=== PATIENT | male | born 1940 | race Caucasian/White ===

== ENCOUNTER → 2018-02-15 07:05 | Outpatient (CLI) | payer MEDICARE, SELFPAY ==
[2018-02-15 10:54] LABS: Hemoglobin 12.8 g/dl (13.0-16.5); Mean Corp Hgb Conc 32.8 g/gl (32-36); Mean Corpuscular Hgb 31.1 pg (27.0-32.0); Mean Corpuscular Volume 94.7 fL (80-94); Mean Platelet Vol. 11.3 fl (6.2-12.0); Platelet Count 294 K/mm3 (150-450); Red Blood Count 4.12 M/mm3 (4.6-6.2); White Blood Count 11.5 K/mm3 (4.4-11.0)
[2018-02-15 10:56] LABS: Scan Indicated on CBC? Y/N NO
[2018-02-15 11:30] LABS: Anion Gap 11 (5-15); BUN 18 mg/dL (7-18); BUN/Creat Ratio 20.6 RATIO (10-20); Calcium,Total 8.5 mg/dL (8.5-10.1); Chloride 107 mmol/L (98-107); Cholesterol 108 mg/dL (200); Creatinine, Serum 0.88 mg/dL (0.70-1.30); EST Glomerular Filtration Rate 90 mL/min (>60); Est Glom Filt Rate - Afr Amer 108 mL/min (>60); Glucose 83 mg/dL (74-106); High Density Lipoprotein 43 mg/dL; Potassium 4.1 mmol/L (3.5-5.1); Sodium Level 143 mmol/L (136-145); Triglycerides 67 mg/dL; Very Low Density Lipoprotein 13 mg/dL (5-40)
== END ==
PROVIDERS: Family Provider Family Medicine; PCP Family Medicine; Visit Provider Family Medicine
DX: I25.10 Atherosclerotic heart disease of native coronary artery without angina pectoris (principal); Z12.5 Encounter for screening for malignant neoplasm of prostate; E78.00 Pure hypercholesterolemia, unspecified
CPT/HCPCS: 36415; 80048; 80061; 84153; 85027

== ENCOUNTER → 2018-08-27 09:59 | Outpatient (CLI) | payer MEDICARE, SELFPAY ==
[2015-12-21 09:55] VITALS: BMI 27.9
[2018-08-27 12:36] LABS: PSA,Total- Diagnostic 6.09 ng/mL (0.0-4.0)
== END ==
PROVIDERS: Family Provider Family Medicine; PCP Family Medicine; Referring Provider Urology; Visit Provider Urology
DX: R97.20 Elevated prostate specific antigen [PSA] (principal)
CPT/HCPCS: 36415; 84153

== ENCOUNTER → 2019-02-22 07:02 | Outpatient (CLI) | payer MEDICARE, SELFPAY ==
[2019-02-22 10:11] LABS: Absolute Lymphocyte Count 2.77 X10^3/ul (0.83-4.51); Absolute Neutrophil Count 5.7 X10^3/uL (2.0-7.7); Basophil# 0.05 X10^3/uL; Basophil% 0.5 % (0-1); Eosinophil# 0.29 X10^3/uL; Hematocrit 39.5 % (40-54); Hemoglobin 13.2 g/dl (13.0-16.5); Lymphocyte # 2.77 X10^3/ul (4.0); Lymphocyte % 28.3 % (19-41); Mean Corp Hgb Conc 33.4 g/gl (32-36); Mean Corpuscular Hgb 31.7 pg (27.0-32.0); Mean Corpuscular Volume 94.7 fL (80-94); Monocyte# 0.91 X10^3/uL; Monocyte% 9.3 % (0-10); Neutrophil # 5.74 X10^3/uL (2.7-7.7); Neutrophil % 58.7 % (47-70); Platelet Count 270 K/mm3 (150-450); RBC Distribution Width CV 13.4 % (11.6-14.6); RBC Distribution Width SD 46.3 fl (35.1-43.9); Red Blood Count 4.17 M/mm3 (4.6-6.2); White Blood Count 9.8 K/mm3 (4.4-11.0)
[2019-02-22 10:23] LABS: POSITIVE COUNT NO; POSITIVE DIFFERENTIAL NO; POSITIVE MORPHOLOGY NO
[2019-02-22 10:31] LABS: Anion Gap 4 (5-15); BUN 18 mg/dL (7-18); Calcium,Total 8.6 mg/dL (8.5-10.1); Chloride 108 mmol/L (98-107); Cholesterol 136 mg/dL (200); Creatinine, Serum 0.95 mg/dL (0.70-1.30); EST Glomerular Filtration Rate 82 mL/min (>60); Est Glom Filt Rate - Afr Amer 99 mL/min (>60); Glucose 93 mg/dL (74-106); High Density Lipoprotein 43 mg/dL; Sodium Level 138 mmol/L (136-145); Triglycerides 113 mg/dL; Very Low Density Lipoprotein 23 mg/dL (5-40)
== END ==
PROVIDERS: Family Provider Family Medicine; PCP Family Medicine; Referring Provider Family Medicine; Visit Provider Family Medicine
DX: E78.00 Pure hypercholesterolemia, unspecified (principal); I25.10 Atherosclerotic heart disease of native coronary artery without angina pectoris
CPT/HCPCS: 36415; 80048; 80061; 85025

== ENCOUNTER → 2019-10-15 | Outpatient (CLI) | payer MEDICARE, SELFPAY ==
[2019-10-15 11:46] LABS: PSA,Total- Diagnostic 6.75 ng/mL (0.0-4.0)
== END | disposition home or self-care (01) ==
LOC: LAB 09:13
PROVIDERS: PCP Family Medicine; Referring Provider Urology; Visit Provider Urology
DX: C61 Malignant neoplasm of prostate (principal)
CPT/HCPCS: 36415; 84153

== ENCOUNTER → 2020-03-27 | Outpatient (CLI) | payer MEDICARE, SELFPAY ==
[2020-03-27 09:59] LABS: Absolute Lymphocyte Count 2.44 X10^3/uL (0.83-4.51); Absolute Neutrophil Count 5.4 X10^3/uL (2.0-7.7); Basophil# 0.07 X10^3/uL; Basophil% 0.8 % (0-1); Eosinophil# 0.33 X10^3/uL; Eosinophils% 3.7 % (0-5); Hematocrit 39.4 % (40-54); Hemoglobin 12.8 g/dL (13.0-16.5); Lymphocyte # 2.44 X10^3/ul (4.0); Lymphocyte % 27.1 % (19-41); Mean Corp Hgb Conc 32.5 g/dL (32-36); Mean Corpuscular Hgb 32.2 pg (27.0-32.0); Monocyte# 0.78 X10^3/uL; Monocyte% 8.7 % (0-10); NRBC Flagged by Analyzer 0 % (0-5); Neutrophil # 5.35 X10^3/uL (2.7-7.7); Neutrophil % 59.5 % (47-70); Platelet Count 273 K/mm3 (150-450); RBC Distribution Width CV 12.8 % (11.6-14.6); Red Blood Count 3.98 M/mm3 (4.6-6.2)
[2020-03-27 10:14] LABS: ALB/GLOB Ratio 1.1 RATIO (0.9-2.4); AST(SGOT) 19 U/L (15-37); Alanine Aminotransfer ALT/SGPT 23 U/L (16-61); Albumin, Serum 3.7 g/dL (3.2-5.0); Alkaline Phosphatase 74 U/L (45-117); Anion Gap 7 (5-15); BUN 20 mg/dL (7-18); BUN/Creat Ratio 20.9 RATIO (10-20); Calcium,Total 8.3 mg/dL (8.5-10.1); Chloride 107 mmol/L (98-107); Cholesterol 126 mg/dL (200); Creatinine, Serum 0.96 mg/dL (0.70-1.30); EST Glomerular Filtration Rate 80 mL/min (>60); Est Glom Filt Rate - Afr Amer 97 mL/min (>60); Globulin 3.4 g/dL (2.2-4.2); Glucose 91 mg/dL (74-106); High Density Lipoprotein 43 mg/dL; Protein, Total 7.1 g/dL (6.4-8.2); Sodium Level 140 mmol/L (136-145); Triglycerides 79 mg/dL; Very Low Density Lipoprotein 16 mg/dL (5-40)
[2020-03-27 10:18] LABS: Vitamin D,25 Hydroxy 56.5 ng/mL
[2020-03-27 16:25] LABS: Vitamin B12 556 pg/mL (211-911)
[2020-03-27 16:26] LABS: Ferritin 132 ng/mL (26-388); Iron 96 ug/dL (65-175); Iron Binding Capacity,Total 342 ug/dL (250-450); PERCENT IRON SATURATION 28.1 % (15.0-55.0)
== END | disposition home or self-care (01) ==
LOC: MTLAB 07:03
PROVIDERS: PCP Family Medicine; Referring Provider Family Medicine; Visit Provider Family Medicine
DX: I25.10 Atherosclerotic heart disease of native coronary artery without angina pectoris (principal); E55.9 Vitamin D deficiency, unspecified; D64.9 Anemia, unspecified; F17.200 Nicotine dependence, unspecified, uncomplicated
CPT/HCPCS: 36415; 80053; 80061; 82306; 82607; 82728; 82746; 83540; 83550; 85025

== ENCOUNTER → 2020-07-09 | Outpatient (CLI) | payer MEDICARE, SELFPAY ==
[2020-07-09 07:08] LABS: Bacteria 0 SEEN /hpf (None Seen); Mucous, Urine 0 SEEN /hpf (<or=2+); Red Blood Cells-Urine 0 SEEN /hpf (0-5); Squamous Epithelial Cells - UA 0 SEEN /hpf (0-5); White Blood Cells 0 SEEN /hpf (0-5)
[2020-07-09 09:55] LABS: Color, Urine Yellow (Yellow); Glucose, Dipstick Normal (Normal); Ketone-Dipstick Negative (Negative); Leukocyte Esterase-Dipstick Negative /ul (Negative); Nitrite-Dipstick Negative (Negative); Occult Blood-Urine Negative /ul (Negative); Protein-Dipstick Negative (Negative); Urine Bilirubin Dipstick Negative (Negative); Urine Clarity Clear (Clear); Urine Urobilinogen Normal (Normal)
[2020-07-09 10:27] LABS: Vitamin B12 625 pg/mL (211-911)
[2020-07-09 10:58] LABS: Ferritin 125 ng/mL (26-388); Iron 82 ug/dL (65-175); Iron Binding Capacity,Total 343 ug/dL (250-450); PERCENT IRON SATURATION 23.9 % (15.0-55.0)
== END | disposition home or self-care (01) ==
LOC: MTLAB 07:03
PROVIDERS: PCP Family Medicine; Referring Provider Family Medicine; Visit Provider Family Medicine
DX: D64.9 Anemia, unspecified (principal)
CPT/HCPCS: 36415; 81001; 82607; 82728; 82746; 83540; 83550

== ENCOUNTER → 2020-07-14 08:17 | Outpatient (CLI) | payer MEDICARE, SELFPAY ==
[2020-07-14 10:04] LABS: Basophil# 0.06 X10^3/uL; Basophil% 0.8 % (0-1); Eosinophil# 0.27 X10^3/uL; Eosinophils% 3.5 % (0-5); Hematocrit 38.8 % (40-54); Hemoglobin 12.7 g/dL (13.0-16.5); Lymphocyte % 22.1 % (19-41); Mean Corp Hgb Conc 32.7 g/dL (32-36); Mean Corpuscular Hgb 32.1 pg (27.0-32.0); Monocyte# 0.67 X10^3/uL; Monocyte% 8.7 % (0-10); NRBC Flagged by Analyzer 0 % (0-5); Neutrophil # 4.97 X10^3/uL (2.7-7.7); Neutrophil % 64.5 % (47-70); Platelet Count 274 K/mm3 (150-450); RBC Distribution Width CV 12.6 % (11.6-14.6); RBC Distribution Width SD 45.3 fl (35.1-43.9); Red Blood Count 3.96 M/mm3 (4.6-6.2); White Blood Count 7.7 K/mm3 (4.4-11.0)
[2020-07-14 10:20] LABS: Vitamin B12 555 pg/mL (211-911); Vitamin D,25 Hydroxy 48.4 ng/mL
[2020-07-14 10:24] LABS: ALB/GLOB Ratio 1.1 RATIO (0.9-2.4); AST(SGOT) 15 U/L (15-37); Alanine Aminotransfer ALT/SGPT 22 U/L (16-61); Albumin, Serum 3.7 g/dL (3.2-5.0); Alkaline Phosphatase 79 U/L (45-117); Anion Gap 6 (5-15); BUN 17 mg/dL (7-18); Calcium,Total 8.8 mg/dL (8.5-10.1); Chloride 110 mmol/L (98-107); Cholesterol 110 mg/dL (200); Creatinine, Serum 0.94 mg/dL (0.70-1.30); EST Glomerular Filtration Rate 81 mL/min (>60); Est Glom Filt Rate - Afr Amer 99 mL/min (>60); Globulin 3.3 g/dL (2.2-4.2); Glucose 99 mg/dL (74-106); High Density Lipoprotein 47 mg/dL; PSA,Total- Diagnostic 5.76 ng/mL (0.0-4.0); Potassium 4.2 mmol/L (3.5-5.1); Sodium Level 142 mmol/L (136-145); Triglycerides 49 mg/dL; Very Low Density Lipoprotein 10 mg/dL (5-40)
== END ==
PROVIDERS: PCP Family Medicine; Referring Provider Family Medicine; Visit Provider Family Medicine
DX: I25.10 Atherosclerotic heart disease of native coronary artery without angina pectoris (principal); D64.9 Anemia, unspecified; E78.00 Pure hypercholesterolemia, unspecified; C61 Malignant neoplasm of prostate; E55.9 Vitamin D deficiency, unspecified
CPT/HCPCS: 36415; 80053; 80061; 82306; 82607; 84153; 85025

== ENCOUNTER → 2020-10-05 10:37 | Outpatient (CLI) | payer MEDICARE, SELFPAY ==
[2015-12-21 09:55] VITALS: BMI 27.9
[2020-10-05 13:42] LABS: Ferritin 129 ng/mL (26-388); Iron 130 ug/dL (65-175); Iron Binding Capacity,Total 353 ug/dL (250-450)
== END ==
PROVIDERS: PCP Family Medicine; Referring Provider Family Medicine; Visit Provider Family Medicine
DX: D64.9 Anemia, unspecified (principal)
CPT/HCPCS: 36415; 82728; 82746; 83540; 83550

== ENCOUNTER → 2020-10-08 10:45 | Outpatient (CLI) | payer MEDICARE, SELFPAY ==
[2015-12-21 09:55] VITALS: BMI 27.9
[2020-10-08 12:46] LABS: PSA,Total- Diagnostic 7.29 ng/mL (0.0-4.0)
== END ==
PROVIDERS: PCP Family Medicine; Referring Provider Urology; Visit Provider Urology
DX: R97.20 Elevated prostate specific antigen [PSA] (principal)
CPT/HCPCS: 36415; 84153

== ENCOUNTER 2020-10-15 16:12 | Outpatient (RCR) | payer MEDICARE, SELFPAY ==
[2015-12-21 09:55] VITALS: BMI 27.9
== END 2020-10-15 23:59 ==
LOC: IMMUN 16:12
PROVIDERS: PCP Family Medicine; Visit Provider Family Medicine
DX: Z23 Encounter for immunization (principal)
CPT/HCPCS: 0011A; 0012A; 91301

== ENCOUNTER → 2021-04-02 07:33 | Outpatient (CLI) | payer MEDICARE, SELFPAY ==
[2015-12-21 09:55] VITALS: BMI 27.9
[2021-04-02 07:40] LABS: Bacteria 0 SEEN /hpf (None Seen); Mucous, Urine 0 SEEN /hpf (<or=2+); Red Blood Cells-Urine 0 SEEN /hpf (0-5); Squamous Epithelial Cells - UA 0 SEEN /hpf (0-5); White Blood Cells 0 SEEN /hpf (0-5)
[2021-04-02 10:22] LABS: Absolute Lymphocyte Count 2.71 X10^3/uL (0.83-4.51); Absolute Neutrophil Count 6.4 X10^3/uL (2.0-7.7); Basophil# 0.05 X10^3/uL; Basophil% 0.5 % (0-1); Eosinophil# 0.31 X10^3/uL; Hematocrit 39.5 % (40-54); Hemoglobin 13.2 g/dL (13.0-16.5); Lymphocyte # 2.71 X10^3/ul (0.83-4.51); Lymphocyte % 26.3 % (19-41); Mean Corp Hgb Conc 33.4 g/dL (32-36); Mean Corpuscular Hgb 31.5 pg (27.0-32.0); Mean Corpuscular Volume 94.3 fL (80-94); Monocyte# 0.81 X10^3/uL; Monocyte% 7.9 % (0-10); NRBC Flagged by Analyzer 0 % (0-5); Neutrophil # 6.37 X10^3/uL (2.7-7.7); Neutrophil % 61.9 % (47-70); Platelet Count 279 K/mm3 (150-450); RBC Distribution Width CV 12.6 % (11.6-14.6); RBC Distribution Width SD 43.8 fl (35.1-43.9); Red Blood Count 4.19 M/mm3 (4.6-6.2); White Blood Count 10.3 K/mm3 (4.4-11.0)
[2021-04-02 10:22] LABS: Color, Urine Yellow (Yellow); Glucose, Dipstick Normal (Normal); Ketone-Dipstick Negative (Negative); Leukocyte Esterase-Dipstick Negative /ul (Negative); Nitrite-Dipstick Negative (Negative); Occult Blood-Urine Negative /ul (Negative); Protein-Dipstick Negative (Negative); Specific Gravity, Urine 1.015 (1.002-1.030); Urine Bilirubin Dipstick Negative (Negative); Urine Clarity Clear (Clear); Urine Urobilinogen Normal (Normal)
[2021-04-02 10:36] LABS: ALB/GLOB Ratio 1.1 RATIO (0.9-2.4); AST(SGOT) 16 U/L (15-37); Alanine Aminotransfer ALT/SGPT 21 U/L (16-61); Albumin, Serum 3.9 g/dL (3.2-5.0); Alkaline Phosphatase 78 U/L (45-117); Anion Gap 5 (5-15); BUN 18 mg/dL (7-18); BUN/Creat Ratio 19.1 RATIO (10-20); Calcium,Total 8.5 mg/dL (8.5-10.1); Chloride 107 mmol/L (98-107); Cholesterol 130 mg/dL (200); Creatinine, Serum 0.94 mg/dL (0.70-1.30); EST Glomerular Filtration Rate 82 mL/min (>60); Est Glom Filt Rate - Afr Amer 99 mL/min (>60); Globulin 3.4 g/dL (2.2-4.2); Glucose 92 mg/dL (74-106); High Density Lipoprotein 44 mg/dL; Protein, Total 7.3 g/dL (6.4-8.2); Sodium Level 139 mmol/L (136-145); Triglycerides 97 mg/dL; Very Low Density Lipoprotein 19 mg/dL (5-40); Vitamin D,25 Hydroxy 52.5 ng/mL
== END ==
PROVIDERS: PCP Family Medicine; Referring Provider Family Medicine; Visit Provider Family Medicine
DX: E55.9 Vitamin D deficiency, unspecified (principal); E78.00 Pure hypercholesterolemia, unspecified; F17.200 Nicotine dependence, unspecified, uncomplicated
CPT/HCPCS: 36415; 80053; 80061; 81001; 82306; 85025

== ENCOUNTER 2021-09-27 10:16 | Outpatient (CLI) | payer MEDICARE, SELFPAY ==
[2021-09-27 12:23] LABS: PSA,Total- Diagnostic 6.86 ng/mL (0.0-4.0)
== END 2021-09-27 23:59 | disposition short-term general hospital (02) ==
LOC: MTLAB 10:17
PROVIDERS: PCP Family Medicine; Referring Provider Urology; Visit Provider Urology
DX: R97.20 Elevated prostate specific antigen [PSA] (principal)
CPT/HCPCS: 36415; 84153

== ENCOUNTER → 2022-04-11 | Outpatient (CLI) | payer MEDICARE, SELFPAY ==
[2022-04-11 07:58] LABS: Bacteria 0 SEEN /hpf (None Seen); Mucous, Urine 0 SEEN /hpf (<or=2+); Red Blood Cells-Urine 0 SEEN /hpf (0-5); Squamous Epithelial Cells - UA 0 SEEN /hpf (0-5); White Blood Cells 0 SEEN /hpf (0-5)
[2022-04-11 10:24] LABS: Color, Urine Yellow (Yellow); Glucose, Dipstick Normal (Normal); Ketone-Dipstick Negative (Negative); Leukocyte Esterase-Dipstick Negative /ul (Negative); Nitrite-Dipstick Negative (Negative); Occult Blood-Urine Negative /ul (Negative); Protein-Dipstick Negative (Negative); Urine Bilirubin Dipstick Negative (Negative); Urine Clarity Clear (Clear); Urine Urobilinogen Normal (Normal)
[2022-04-11 10:41] LABS: ALB/GLOB Ratio 1.1 RATIO (0.9-2.4); AST(SGOT) 15 U/L (15-37); Alanine Aminotransfer ALT/SGPT 19 U/L (16-61); Albumin, Serum 3.7 g/dL (3.2-5.0); Alkaline Phosphatase 70 U/L (45-117); Anion Gap 9 (5-15); BUN 16 mg/dL (7-18); BUN/Creat Ratio 18.3 RATIO (10-20); Calcium,Total 8.9 mg/dL (8.5-10.1); Chloride 106 mmol/L (98-107); Cholesterol 128 mg/dL (200); Creatinine, Serum 0.88 mg/dL (0.70-1.30); EST Glomerular Filtration Rate 89 mL/min (>60); Est Glom Filt Rate - Afr Amer 107 mL/min (>60); Globulin 3.4 g/dL (2.2-4.2); Glucose 95 mg/dL (74-106); High Density Lipoprotein 45 mg/dL; Protein, Total 7.1 g/dL (6.4-8.2); Sodium Level 140 mmol/L (136-145); Triglycerides 95 mg/dL; Very Low Density Lipoprotein 19 mg/dL (5-40)
[2022-04-11 12:22] LABS: Absolute Lymphocyte Count 2.71 X10^3/uL (0.83-4.51); Absolute Neutrophil Count 4.8 X10^3/uL (2.0-7.7); Basophil# 0.06 X10^3/uL; Basophil% 0.7 % (0-1); Eosinophil# 0.28 X10^3/uL; Eosinophils% 3.3 % (0-5); Hematocrit 39.3 % (40-54); Hemoglobin 13.1 g/dL (13.0-16.5); Lymphocyte # 2.71 X10^3/ul (0.83-4.51); Lymphocyte % 31.5 % (19-41); Mean Corp Hgb Conc 33.3 g/dL (32-36); Mean Corpuscular Hgb 32.3 pg (27.0-32.0); Mean Corpuscular Volume 96.8 fL (80-94); Monocyte# 0.73 X10^3/uL; Monocyte% 8.5 % (0-10); NRBC Flagged by Analyzer 0 % (0-5); Neutrophil # 4.79 X10^3/uL (2.7-7.7); Neutrophil % 55.8 % (47-70); Platelet Count 247 K/mm3 (150-450); RBC Distribution Width CV 12.6 % (11.6-14.6); RBC Distribution Width SD 45.5 fl (35.1-43.9); Red Blood Count 4.06 M/mm3 (4.6-6.2); White Blood Count 8.6 K/mm3 (4.4-11.0)
== END | disposition home or self-care (01) ==
LOC: MTLAB 07:30
PROVIDERS: PCP Family Medicine; Referring Provider Family Medicine; Visit Provider Family Medicine
DX: E78.00 Pure hypercholesterolemia, unspecified (principal); F17.200 Nicotine dependence, unspecified, uncomplicated; E55.9 Vitamin D deficiency, unspecified
CPT/HCPCS: 36415; 80053; 80061; 81001; 82306; 85025

== ENCOUNTER → 2022-09-21 | Outpatient (CLI) | payer MEDICARE, SELFPAY | END | disposition home or self-care (01) | PROVIDERS: PCP Family Medicine; Visit Provider Internal Medicine Cardiovascular Disease | DX: J32.9 Chronic sinusitis, unspecified (principal) | CPT/HCPCS: 87070; 87205 ==

== ENCOUNTER → 2022-10-03 | Outpatient (CLI) | payer MEDICARE, SELFPAY ==
[2022-10-03 12:41] LABS: PSA,Total- Diagnostic 8.78 ng/mL (0.0-4.0)
== END | disposition home or self-care (01) ==
LOC: MTLAB 10:06
PROVIDERS: PCP Family Medicine; Referring Provider Urology; Visit Provider Urology
DX: C61 Malignant neoplasm of prostate (principal)
CPT/HCPCS: 36415; 84153

== ENCOUNTER → 2022-10-13 | Outpatient (CLI) | payer MEDICARE, SELFPAY ==
[2022-10-13 08:50] LABS: Bacteria 0 SEEN /hpf (None Seen); Mucous, Urine 0 SEEN /hpf (<or=2+); Red Blood Cells-Urine 0 SEEN /hpf (0-5); White Blood Cells 0 SEEN /hpf (0-5)
[2022-10-13 10:06] LABS: Absolute Lymphocyte Count 2.82 X10^3/uL (0.83-4.51); Basophil# 0.06 X10^3/uL; Basophil% 0.8 % (0-1); Eosinophil# 0.32 X10^3/uL; Eosinophils% 4.1 % (0-5); Hematocrit 37.3 % (40-54); Hemoglobin 12.2 g/dL (13.0-16.5); Lymphocyte # 2.82 X10^3/ul (0.83-4.51); Mean Corp Hgb Conc 32.7 g/dL (32-36); Mean Corpuscular Hgb 31.5 pg (27.0-32.0); Mean Corpuscular Volume 96.4 fL (80-94); Mean Platelet Vol. 10.7 fl (6.2-12.0); Monocyte# 0.63 X10^3/uL; NRBC Flagged by Analyzer 0 % (0-5); Neutrophil # 3.97 X10^3/uL (2.7-7.7); Neutrophil % 50.7 % (47-70); Platelet Count 301 K/mm3 (150-450); RBC Distribution Width CV 12.5 % (11.6-14.6); RBC Distribution Width SD 44.1 fl (35.1-43.9); Red Blood Count 3.87 M/mm3 (4.6-6.2); White Blood Count 7.8 K/mm3 (4.4-11.0)
[2022-10-13 10:18] LABS: Vitamin D,25 Hydroxy 60.4 ng/mL
[2022-10-13 10:19] LABS: AST(SGOT) 15 U/L (15-37); Alanine Aminotransfer ALT/SGPT 26 U/L (16-61); Albumin, Serum 3.5 g/dL (3.2-5.0); Alkaline Phosphatase 82 U/L (45-117); Anion Gap 10 (5-15); BUN 21 mg/dL (7-18); BUN/Creat Ratio 23.4 RATIO (10-20); Calcium,Total 8.4 mg/dL (8.5-10.1); Chloride 106 mmol/L (98-107); Cholesterol 97 mg/dL (200); EST Glomerular Filtration Rate 86 mL/min (>60); Est Glom Filt Rate - Afr Amer 104 mL/min (>60); Globulin 3.5 g/dL (2.2-4.2); Glucose 92 mg/dL (74-106); High Density Lipoprotein 35 mg/dL; Potassium 4.1 mmol/L (3.5-5.1); Sodium Level 142 mmol/L (136-145); Triglycerides 79 mg/dL; Very Low Density Lipoprotein 16 mg/dL (5-40)
[2022-10-13 10:20] LABS: Color, Urine Yellow (Yellow); Urine Clarity Clear (Clear)
[2022-10-13 10:21] LABS: Glucose, Dipstick Normal (Normal); Ketone-Dipstick Negative (Negative); Urine Bilirubin Dipstick Negative (Negative)
[2022-10-13 10:22] LABS: Protein-Dipstick 30 mg/dl (Negative); Urine Urobilinogen Normal (Normal)
[2022-10-13 10:23] LABS: Leukocyte Esterase-Dipstick Negative /ul (Negative); Nitrite-Dipstick Negative (Negative); Occult Blood-Urine Negative /ul (Negative)
[2022-10-13 10:30] LABS: Squamous Epithelial Cells - UA 0-5 SEEN /hpf (0-5)
[2022-10-14 10:35] LABS: Ferritin 138 ng/mL (26-388); Iron 93 ug/dL (65-175); Iron Binding Capacity,Total 318 ug/dL (250-450); PERCENT IRON SATURATION 29.2 % (15.0-55.0)
[2022-10-14 10:38] LABS: Vitamin B12 662 pg/mL (211-911)
== END | disposition home or self-care (01) ==
PROVIDERS: PCP Family Medicine; Referring Provider Family Medicine; Visit Provider Family Medicine
DX: E55.9 Vitamin D deficiency, unspecified (principal); F17.200 Nicotine dependence, unspecified, uncomplicated; I25.10 Atherosclerotic heart disease of native coronary artery without angina pectoris; D64.9 Anemia, unspecified
CPT/HCPCS: 36415; 80053; 80061; 81001; 82306; 82607; 82728; 83540; 83550; 85025

== ENCOUNTER → 2023-04-07 | Outpatient (CLI) | payer MEDICARE, SELFPAY ==
[2023-04-07 10:52] LABS: Absolute Lymphocyte Count 2.73 X10^3/uL (0.83-4.51); Absolute Neutrophil Count 4.7 X10^3/uL (2.0-7.7); Basophil# 0.08 X10^3/uL; Basophil% 0.9 % (0-1); Eosinophil# 0.33 X10^3/uL; Eosinophils% 3.8 % (0-5); Hematocrit 37.7 % (40-54); Hemoglobin 12.6 g/dL (13.0-16.5); Lymphocyte # 2.73 X10^3/ul (0.83-4.51); Lymphocyte % 31.7 % (19-41); Mean Corp Hgb Conc 33.4 g/dL (32-36); Mean Corpuscular Hgb 31.8 pg (27.0-32.0); Mean Corpuscular Volume 95.2 fL (80-94); Mean Platelet Vol. 10.9 fl (6.2-12.0); Monocyte# 0.73 X10^3/uL; Monocyte% 8.5 % (0-10); NRBC Flagged by Analyzer 0 % (0-5); Neutrophil # 4.73 X10^3/uL (2.7-7.7); Neutrophil % 54.9 % (47-70); Platelet Count 251 K/mm3 (150-450); RBC Distribution Width CV 12.7 % (11.6-14.6); RBC Distribution Width SD 44.6 fl (35.1-43.9); Red Blood Count 3.96 M/mm3 (4.6-6.2); White Blood Count 8.6 K/mm3 (4.4-11.0)
[2023-04-07 10:53] LABS: Color, Urine Yellow (Yellow); Glucose, Dipstick Normal (Normal); Ketone-Dipstick Negative (Negative); Leukocyte Esterase-Dipstick Negative /ul (Negative); Nitrite-Dipstick Negative (Negative); Occult Blood-Urine Negative /ul (Negative); Protein-Dipstick Negative (Negative); Specific Gravity, Urine 1.015 (1.002-1.030); Urine Bilirubin Dipstick Negative (Negative); Urine Clarity Clear (Clear); Urine Urobilinogen Normal (Normal); Urine pH 6.5 (5.0 - 8.0)
[2023-04-07 11:34] LABS: ALB/GLOB Ratio 1.1 RATIO (0.9-2.4); AST(SGOT) 17 U/L (15-37); Alanine Aminotransfer ALT/SGPT 19 U/L (16-61); Albumin, Serum 3.6 g/dL (3.2-5.0); Alkaline Phosphatase 77 U/L (45-117); Anion Gap 6 (5-15); BUN 18 mg/dL (7-18); BUN/Creat Ratio 19.3 RATIO (10-20); Calcium,Total 8.4 mg/dL (8.5-10.1); Chloride 108 mmol/L (98-107); Cholesterol 128 mg/dL (200); Creatinine, Serum 0.93 mg/dL (0.70-1.30); EST Glomerular Filtration Rate 82 mL/min (>60); Est Glom Filt Rate - Afr Amer 100 mL/min (>60); Globulin 3.4 g/dL (2.2-4.2); Glucose 98 mg/dL (74-106); High Density Lipoprotein 44 mg/dL; Potassium 4.1 mmol/L (3.5-5.1); Sodium Level 140 mmol/L (136-145); Triglycerides 103 mg/dL; Very Low Density Lipoprotein 21 mg/dL (5-40)
== END | disposition home or self-care (01) ==
LOC: MTLAB 07:10
PROVIDERS: PCP Family Medicine; Referring Provider Family Medicine; Visit Provider Family Medicine
DX: E55.9 Vitamin D deficiency, unspecified (principal); I25.10 Atherosclerotic heart disease of native coronary artery without angina pectoris
CPT/HCPCS: 36415; 80053; 80061; 81002; 82306; 85025

== ENCOUNTER → 2023-10-12 | Outpatient (CLI) | payer MEDICARE, SELFPAY ==
[2023-10-13 12:09] LABS: PSA, Free 1.85 ng/mL; PSA, Free % 21.3 % (.)
== END | disposition home or self-care (01) ==
LOC: LAB 08:54
PROVIDERS: PCP Family Medicine; Referring Provider Nurse Practitioner; Visit Provider Nurse Practitioner
DX: C61 Malignant neoplasm of prostate (principal)
CPT/HCPCS: 36415; 84153; 84154

== ENCOUNTER → 2024-05-13 | Outpatient (CLI) | payer MEDICARE, SELFPAY ==
[2024-05-13 12:16] LABS: Absolute Lymphocyte Count 1.78 X10^3/uL (0.83-4.51); Absolute Neutrophil Count 4.9 X10^3/uL (2.0-7.7); Basophil# 0.06 X10^3/uL; Basophil% 0.8 % (0-1); Eosinophil# 0.18 X10^3/uL; Eosinophils% 2.4 % (0-5); Hematocrit 36.4 % (40-54); Hemoglobin 12.4 g/dL (13.0-16.5); Lymphocyte # 1.78 X10^3/ul (0.83-4.51); Lymphocyte % 23.5 % (19-41); Mean Corp Hgb Conc 34.1 g/dL (32-36); Mean Corpuscular Hgb 32.5 pg (27.0-32.0); Mean Corpuscular Volume 95.3 fL (80-94); Mean Platelet Vol. 10.6 fl (6.2-12.0); Monocyte% 7.9 % (0-10); NRBC Flagged by Analyzer 0 % (0-5); Neutrophil # 4.94 X10^3/uL (2.7-7.7); Neutrophil % 65.1 % (47-70); Platelet Count 241 K/mm3 (150-450); RBC Distribution Width CV 13.1 % (11.6-14.6); Red Blood Count 3.82 M/mm3 (4.6-6.2); White Blood Count 7.6 K/mm3 (4.4-11.0)
[2024-05-13 12:35] LABS: Vitamin D,25 Hydroxy 58.7 ng/mL
[2024-05-13 12:38] LABS: ALB/GLOB Ratio 1.1 RATIO (0.9-2.4); AST(SGOT) 17 U/L (15-37); Alanine Aminotransfer ALT/SGPT 18 U/L (16-61); Albumin, Serum 3.6 g/dL (3.2-5.0); Alkaline Phosphatase 76 U/L (45-117); Anion Gap 8 (5-15); BUN 18 mg/dL (7-18); BUN/Creat Ratio 19.3 RATIO (10-20); Calcium,Total 9.1 mg/dL (8.5-10.1); Chloride 108 mmol/L (98-107); Cholesterol 134 mg/dL (200); Creatinine, Serum 0.93 mg/dL (0.70-1.30); EST Glomerular Filtration Rate 82 mL/min (>60); Est Glom Filt Rate - Afr Amer 99 mL/min (>60); Globulin 3.3 g/dL (2.2-4.2); Glucose 89 mg/dL (74-106); High Density Lipoprotein 46 mg/dL; Potassium 3.8 mmol/L (3.5-5.1); Protein, Total 6.9 g/dL (6.4-8.2); Sodium Level 140 mmol/L (136-145); Triglycerides 146 mg/dL; Very Low Density Lipoprotein 29 mg/dL (5-40)
== END | disposition home or self-care (01) ==
LOC: MTLAB 10:51
PROVIDERS: PCP Family Medicine; Referring Provider Family Medicine; Visit Provider Family Medicine
DX: I25.10 Atherosclerotic heart disease of native coronary artery without angina pectoris (principal); E55.9 Vitamin D deficiency, unspecified
CPT/HCPCS: 36415; 80053; 80061; 82306; 85025

== ENCOUNTER → 2024-05-23 | Outpatient (CLI) | payer MEDICARE, SELFPAY ==
[2024-05-23 12:35] LABS: Vitamin B12 730 pg/mL (211-911)
[2024-05-23 12:44] LABS: Ferritin 132 ng/mL (26-388); Iron 108 ug/dL (65-175); Iron Binding Capacity,Total 379 ug/dL (250-450); PERCENT IRON SATURATION 28.5 % (15.0-55.0)
== END | disposition home or self-care (01) ==
LOC: MTLAB 10:29
PROVIDERS: PCP Family Medicine; Referring Provider Family Medicine; Visit Provider Family Medicine
DX: D64.9 Anemia, unspecified (principal)
CPT/HCPCS: 36415; 82607; 82728; 83540; 83550

== ENCOUNTER → 2024-11-20 | Outpatient (CLI) | payer MEDICARE, SELFPAY ==
--- NOTE | 2024-11-20 15:51 | RAD_ITS ---
PROCEDURE: KNEE 3 VIEWS REASON FOR EXAM: Pain TECHNIQUE: 3 view(s) of the right knee COMPARISON: None. FINDINGS: No fracture. No suspicious bone lesion. Moderate tricompartmental degenerative changes No effusion. Soft tissues are unremarkable. RAD/Knee 3 Views IMPRESSION: Moderate degenerative changes with no acute osseous abnormality Reading Location: [facility]
--- NOTE | 2024-11-20 15:51 | RAD_ITS ---
PROCEDURE: HIP, UNI W/ PELVIS 2-3 VIEWS REASON FOR EXAM: Pain TECHNIQUE: Two views of the right hip with pelvis COMPARISON: None. FINDINGS: No fracture. No suspicious bone lesion. Normal alignment. Soft tissues are unremarkable. RAD/HIP, UNI W/ Pelvis 2-3 Views IMPRESSION: No acute fracture or dislocation. Reading Location: [facility]
== END | disposition home or self-care (01) ==
LOC: MTRAD 15:51
PROVIDERS: PCP Family Medicine; Referring Provider Family Medicine; Visit Provider Family Medicine
DX: M25.551 Pain in right hip (principal)
CPT/HCPCS: 73502; 73562

== ENCOUNTER → 2024-12-10 | Outpatient (CLI) | payer MEDICARE, SELFPAY ==
[2024-12-10 12:06] LABS: ALB/GLOB Ratio 1.5 RATIO (0.9-2.4); AST(SGOT) 18 U/L (<=37); Alanine Aminotransfer ALT/SGPT 14 U/L (<=46); Albumin, Serum 4.4 g/dL (3.4-4.8); Alkaline Phosphatase 81 U/L (40-129); Anion Gap 14 (5-15); BUN 20 mg/dL (4-19); BUN/Creat Ratio 20.8 RATIO (10-20); Calcium,Total 7.6 mg/dL (7.6-11.0); Carbon Dioxide 22.2 mmol/L (21.0-32.0); Chloride 104 mmol/L (98-108); Cholesterol 115 mg/dL (<=200); Creatinine, Serum 0.96 mg/dL (0.70-1.20); EST Glomerular Filtration Rate 78 (>60); Globulin 2.9 g/dL (2.2-4.2); Glucose 98 mg/dL (70-99); High Density Lipoprotein 51 mg/dL; Low Density Lipoprotein Calc. 49 mg/dL; PSA,Total - Annual Screen 5.46 ng/mL (0.02-4.00); Potassium 4.3 mmol/L (3.3-5.1); Protein, Total 7.3 g/dL (5.9-8.4); Sodium Level 140 mmol/L (133-145); Total Bilirubin 0.34 mg/dL (0.00-1.30); Triglycerides 72 mg/dL; Very Low Density Lipoprotein 14 mg/dL (5-40); cholesterol:hdl ratio screen 2.24
== END | disposition home or self-care (01) ==
LOC: MTLAB 07:03
PROVIDERS: PCP Family Medicine; Referring Provider Family Medicine; Visit Provider Family Medicine
DX: Z00.00 Encounter for general adult medical examination without abnormal findings (principal); Z12.5 Encounter for screening for malignant neoplasm of prostate; E78.5 Hyperlipidemia, unspecified
CPT/HCPCS: 36415; 80053; 80061; 84153; G0103

== ENCOUNTER → 2025-03-20 | Outpatient (CLI) | payer MEDICARE, SELFPAY ==
[2025-03-20 16:24] LABS: PSA,Total- Diagnostic 7.36 ng/mL (0.00-4.00)
== END | disposition home or self-care (01) ==
LOC: MTLAB 13:34
PROVIDERS: PCP Family Medicine; Referring Provider Urology; Visit Provider Urology
DX: R97.20 Elevated prostate specific antigen [PSA] (principal)
CPT/HCPCS: 36415; 84153

== ENCOUNTER → 2025-05-27 | Outpatient (CLI) | payer MEDICARE, SELFPAY ==
[2025-05-27 15:26] LABS: Hematocrit 35.5 % (40-54); Hemoglobin 11.8 g/dL (13.0-16.5); Immature Granulocytes Count 0.030 X10^3/uL (0.0-0.0); Mean Corp Hgb Conc 33.2 g/dL (32-36); Mean Corpuscular Volume 95.9 fL (80-94); Mean Platelet Vol. 10.9 fl (6.2-12.0); NRBC Flagged by Analyzer 0 % (0-5); Platelet Count 290 K/mm3 (150-450); RBC Distribution Width CV 12.9 % (11.6-14.6); RBC Distribution Width SD 45.8 fl (35.1-43.9); Red Blood Count 3.70 M/mm3 (4.6-6.2); White Blood Count 7.8 K/mm3 (4.4-11.0)
[2025-05-27 18:54] LABS: AST(SGOT) 19 U/L (<=37); Alanine Aminotransfer ALT/SGPT 11 U/L (<=46); Albumin, Serum 4.1 g/dL (3.4-4.8); Alkaline Phosphatase 78 U/L (40-129); Anion Gap 15 (5-15); BUN 16 mg/dL (4-19); BUN/Creat Ratio 17.6 RATIO (10-20); Calcium,Total 9.1 mg/dL (7.6-11.0); Carbon Dioxide 21.2 mmol/L (21.0-32.0); Chloride 103 mmol/L (98-108); Cholesterol 111 mg/dL (<=200); Globulin 2.8 g/dL (2.2-4.2); Glucose 78 mg/dL (70-99); Low Density Lipoprotein Calc. 47 mg/dL; Potassium 3.9 mmol/L (3.3-5.1); Triglycerides 87 mg/dL; Very Low Density Lipoprotein 17 mg/dL (5-40); Vitamin D,25 Hydroxy 51.6 ng/mL (30-100); cholesterol:hdl ratio screen 2.39
--- OUTSIDE RECORDS SUMMARY | 2025-05-27 19:59 | XMS RPT_ITS | CCD ---
Author Organization [facility] CliniSyin Care Team Providers Care Concrete Inspector Name Role Phone José Miguel BORDEN, Dr. Rian Jefferson Primary Care Provider José Miguel BORDEN, Dr. Rian Jefferson Attending Provider [phone] José Miguel BORDEN, Dr. Rian Jefferson Referring Provider Jaison BORDEN, Dr. Herman Attending Provider Jaison BORDEN, Dr. Herman Referring Provider Unavailable Primary Care Provider UnavailBENNIE Moreno Attending Unavailable RIAN QUILES Referring Unavailable BENNIE MAGALLON Attending Unavailable RIAN QUILES Referring Unavailable José Miguel BORDEN, Dr. Rian Jefferson Primary Care Provider Suleiman BORDEN, Dr. Marco Ocampo Attending Provider [phone] Suleiman BORDEN, Dr. Marco Ocampo Referring Provider [phone] Marco Bearden Attending Unavailable Marco Bearden Referring Unavailable Rian Quiles Primary Care Unavailable Rian Quiles Attending Unavailable Rian Quiles Referring Unavailable Rian Quiles Primary Care Unavailable Rian Quiles Attending Unavailable Rian Quiles Referring Unavailable Rian Quiles Primary Care Unavailable Rian Quiles Attending Unavailable Rian Quiles Referring Unavailable Rian Quiles Primary Care Unavailable Virgil Blackwood Attending Unavailable Virgil Blackwood Referring Unavailable Rian Quiles Primary Care Unavailable Medications Current Medications Medication Drug Class(es) Dates Sig (Normalized) Sig (Original) ascorbic acid 500 mg extended release oral capsule (2 sources) Vitamin C Start: 11-28-2005 VITAMIN C 500 MG CAP Take one(1) tablet daily. 0 11/28/2005 Active aspirin 81 mg oral tablet (2 sources) Platelet Aggregation Inhibitor, Nonsteroidal Anti-inflammatory Drug Start: 11-28-2005 ASPIRIN 81 MG TAB Take one (1) tablet daily . 0 11/28/2005 Active cephalexin 500 mg oral capsule (8 sources) Cephalosporin Antibacterial Start: 12-21-2015 take 1 capsule by mouth every six hours Cephalexin 500 MG capsule Active 500 mg PO EVERY 6 HOURS 40 0 December 21, 2015 12:00am COMPOUNDED PRESCRIPTION (2 sources) Start: 06-24-2010 take 1 tablet by mouth once daily COMPOUNDED PRESCRIPTION Vitamin D-3 1 tablet daily po 06/24/2010 Active MULTIVITAMIN TAB (2 sources) Start: 11-28-2005 MULTIVITAMIN TAB Take one(1) tablet daily. 0 11/28/2005 Active sildenafil 50 mg oral tablet (2 sources) Phosphodiesterase 5 Inhibitor Start: 05-26-2014 sildenafil (VIAGRA) 50 mg tablet Take 1 tablet by mouth as needed. TAKE 30-60 MINUTES BEFORE SEXUAL INTERCOURSE NEEDED. 6 tablet 4 05/26/2014 Active Simvastatin (2 sources) HMG-CoA Reductase Inhibitor SIMVASTATIN ORAL Take by mouth once daily. Active terazosin 5 mg oral capsule (2 sources) alpha-Adrenergic Isis Start: 02-20-2012 take 1 capsule by mouth once daily terazosin (HYTRIN) 5 mg capsule Take 1 capsule by mouth once daily. 60 capsule 5 02/20/2012 Active Problems Active Problems Problem Classification Problem Date Documented Date Episodic/Chronic Cancer of prostate (2 sources) Malignant tumor of prostate; Translations: [Malignant neoplasm of prostate] Onset: 01-25-2007 03-28-2024 Chronic Coronary atherosclerosis and other heart disease (1 source) Atherosclerotic heart disease of [place] coronary artery without angina pectoris; Translations: [Atherosclerotic heart disease of 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] Onset: 06-23-2009 06-23-2009 Chronic Other screening for suspected conditions (not mental disorders or infectious disease) (3 sources) Raised prostate specific antigen; Translations: [Elevated prostate specific antigen [PSA]] Onset: 05-30-2016 05-30-2016 Episodic Spondylosis; intervertebral disc disorders; other back problems (3 sources) Lumbar radiculopathy; Translations: [Radiculopathy, lumbar region] Onset: 01-07-2025 01-07-2025 Episodic Past or Other Problems Problem Classification Problem Date Documented Da te Episodic/Chronic Deficiency and other anemia (1 source) Anemia, unspecified; Translations: [Anemia, unspecified] Onset: 06-13-2024 Episodic Other non-traumatic joint disorders (1 source) Pain in right hip; Translations: [Pain in right hip] Onset: 12-03-2024 Episodic Results Test Name Value Interpretation Reference Range Facility PSA,Total- Diagnosticon 07-0 PSA, DIAGNOSTIC 7.36 ng/mL High 0.00-4.00 [facility] Comment on above: Result Comment: This test was performed using the [employer] tPSA method. Measured values of a patient??sample can vary depending on the testing procedure used. PSA values determined on patient samples by different testing procedures cannot be used interchangeably. If there is a change in PSA assays while monitoring therapy, sequential testing should be performed to confirm baseline values. Performed By: #### L 501.9940 #### [facility] [address] [place], [address] CNTHERAPYon 01-21-2025 CNTHERAPY OT/PT/Speech Visit (PTWS) -------- JAMAAL BENAVIDES ([id number]) 1940 M Date Time Provider Department 01/21/25 10:45 AM BENNIE MAGALLON PTLAWANDA Date Time Provider Department Center 01/21/2025 10:45 [id number] Visit: Physical Therapy [503] PT Discharge [752] Primary Visit Diagnosis:Radiculopathy, lumbar region [M54.16] Allergies As of Date: 01/21/2025 (No Known Allergies) Date Reviewed: 05/30/2016 Reviewed by: Kylee Hall RN - Fully Assessed Prescriptions as of 01/21/2025 - SIMVASTATIN ORAL Take by mouth once daily. - sildenafil (VIAGRA) 50 mg tablet Take 1 tablet by mouth as needed. TAKE 30-60 MINUTES BEFORE SEXUAL INTERCOURSE NEEDED. - terazosin (HYTRIN) 5 mg capsule Take 1 capsule by mouth once daily. - COMPOUNDED PRESCRIPTION Vitamin D-3 1 tablet daily po - MULTIVITAMIN TAB Take one(1) tablet daily. - VITAMIN C 500 MG CAP Take one(1) tablet daily. - ASPIRIN 81 MG TAB Take one (1) tablet daily . Normal [facility] [id number] 01-07-2025 [id number] HNO ID: [id number] Author: BENNIE MAGALLON PT Service: ? Author Type: Physical Therapist Type: [id number] Filed: 01/07/2025 23:33 Note Text: [facility] Physical Therapy Plan of Care Certification Patient Name: Jamaal Benavides : 1940 CC #: [id number] Date: 01/07/2025 To: Rian Quiles MD From Therapist: Bennie Magallon PT RE: Patient Certification/ Recertification Your review, approval and electronic signature are required in order to comply with Payor: [employer] / Plan: [employer] HMO / Product Type: HMO / regulations. The identified Physical Therapy PLAN OF CARE for the patient is as follows: M54.16 Radiculopathy, lumbar region (primary encounter diagnosis) PLAN OF CARE: Assessment: Jamaal Benavides presents with diagnosis of R hip, knee and ankle pain that interferes with stair negotiation, rising from a chair, standing, kneeling. The patient presents with impairments in ADL's, balance, flexibility, gait, independence in exercise, overall function, range of motion, strength, symptom management, and tissue tenderness. PROMIS? (Patient-Reported Outcomes Measurement Information System) scores were reviewed and identified as within normal limits. Prognosis for therapy is Excellent due to: current objective clinical presentation, good overall health status, within-session changes, good support system/ coping skills. The patient will benefit from skilled therapy services to meet the goals established for this plan of care as noted below. Classification Pain Mechanism Classification: Neuropathic Low Back Pain Classification: Symptom Modulation Goals for Episode of Care: established 01/07/25 Independent in home exercises. Patient will decrease pain to 0/10 at rest and with functional activities to allow patient to improve ambulation, transfers, and standing tolerance for ADLs. Restore pain-free lumbar ROM to WFL to allow for improved mobility. Stand / Walk without limitations, without pain/symptoms. Patient will increase strength of core and postural muscles to WFL to allow for improve ability to complete ADLs and improve ability to negotiate stairs. Patient will increase flexibility of R piriformis to equal unaffected extremity/side to improve ability to maintain proper posture, improve mechanics, and decrease pain. Patient Goals: alleviate pain Time Frame for Goals and Treatment : 02/04/25 Planned Interventions, Frequency, and Duration: Current Frequency: 1x/week Duration: 4 weeks Total Number of Visits Planned: 4 Planned Treatment Interventions: Therapeutic exercise (88217), Neuromuscular re-education (70603), Manual therapy (98236), Therapeutic activities (18422), Self-fdc management (85471), Gait Training (24701), Patient/Family/Caregiver Education, Body Mechanics Training, General Conditioning PLAN FOR NEXT VISIT: Review, correct and progress HEP to tolerance. Continue with postural stretching and strengthening. As needed, use his flexion directional preference and manual therapy prn. Consider utilizing soft tissue mobilization to R piriformis. Patient demonstrates good understanding of plan of care and treatment. The above goals and plan of care were discussed and agreed upon by patient/family. For further details regarding this patient refer to the Physical Therapy electronically documented visit dated 01/07/2025. Provider Attestation I have reviewed the treatment plan for Jamaal Benavides, [facility]# [id number] for the period of 01/07/25 -- 02/04/25, established on 01/07/2025. Signature certifies the need for therapy services. Normal [facility] CNTHERAPYon 01-07-2025 CNTHERAPY OT/PT/Speech Visit (PTWS) -------- JAMAAL BENAVIDES ([id number]) 1940 M Date Time Provider Department 01/07/25 10:00 AM BENNIE MAGALLON PTWS Date Time Provider Department Center 01/07/2025 10:00 AM [id number], BRENT PTWS [place] [facility] Reason for Visit: PT Eval [747] Physical Therapy [503] Primary Visit Diagnosis:Radiculopathy, lumbar region [M54.16] Allergies As of Date: 01/07/2025 (No Known Allergies) Date Reviewed: 05/30/2016 Reviewed by: Kylee Hall RN - Fully Assessed Prescriptions as of 01/07/2025 - SIMVASTATIN ORAL Take by mouth once daily. - sildenafil (VIAGRA) 50 mg tablet Take 1 tablet by mouth as needed. TAKE 30-60 MINUTES BEFORE SEXUAL INTERCOURSE NEEDED. - terazosin (HYTRIN) 5 mg capsule Take 1 capsule by mouth once daily. - COMPOUNDED PRESCRIPTION Vitamin D-3 1 tablet daily po - MULTIVITAMIN TAB Take one(1) tablet daily. - VITAMIN C 500 MG CAP Take one(1) tablet daily. - ASPIRIN 81 MG TAB Take one (1) tablet daily . 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 Date: 01-07-2025 Prepared By: Bennie Magallon Program Notes Exercises - Supine Piriformis Stretch with Foot on Ground - 3 x daily - 7 x weekly - sets - 3 reps Letter Text Normal [facility] THERAPY NTon 01-07-2025 THERAPY NT HNO ID: [id number] Author: BENNIE MAGALLON, PT Service: ? Author Type: Physical Therapist Type: Therapy (PT/OT/Speech/Resp) Filed: 01/07/2025 10:46 Note Text: Program_ID:[id number] Access Code: [email or web address] URL: [email or web address] Date: 01-07-2025 Prepared By: Bennie Magallon Program Notes Exercises - Supine Piriformis Stretch with Foot on Ground - 3 x daily - 7 x weekly - sets - 3 reps Normal [facility] Anion gap in Serum or Plasma Ordered By: Virgil Blackwood on 12-10-2024 Anion gap [Moles/Vol] 14 mmol/L 5-15 [facility] BUN/creatinine ratioOrdered By: Virgil Blackwood on 12-10-2024 Urea nitrogen/Creatinine [Mass ratio] 20.8 mg/mg High 10-20 [facility] Bilirubin, totalOrdered By: Virgil Blackwood on 12-10-2024 Bilirubin [Mass/Vol] 0.34 mg/dL 0.00-1.30 [facility] Calculated very low density lipoprotein (VLDL) cholesterol measurementOrdered By: Virgil Blackwood on 12-10-2024 Calculated very low density lipoprotein (VLDL) cholesterol measurement 14 mg/dL 5-40 [facility] VLDL Cholesterol 14 mg/dL 5-40 [facility] Carbon dioxide, total [Moles /volume] in Central venous bloodOrdered By: Virgil Blackwood on 12-10-2024 CO2 [Moles/Vol] 22.2 mmol/L 21.0-32.0 [facility] Chloride assayOrdered By: Mitul Blackwood on 12-10-2024 Chloride [Moles/Vol] 104 mmol/L 98-108 [facility] Comprehensive Metabolic Prof ilon 12-10-2024 Albumin [Mass/Vol] 4.4 g/dL Normal 3.4-4.8 [facility] Comment on above: Performed By: #### L 500.4100, L100.0100, L500.4050, L506.1000 #### [facility] [address] [place], [address] Albumin/Globulin [Mass ratio] 1.5 {ratio} Normal 0.9-2.4 [facility] Comment on above: Performed By: #### L 500.4100, L100.0100, L500.4050, L506.1000 #### [facility] [address] [place], [address] ALK PHOS 81 U/L Normal 40-129 [facility] Comment on above: Performed By: #### L 500.4100, L100.0100, L500.4050, L506.1000 #### [facility] [address] [place], [address] ALT [Catalytic activity/Vol] 14 U/L Normal <=46 [facility] Comment on above: Performed By: #### L 500.4100, L100.0100, L500.4050, L506.1000 #### [facility] [address] [place], [address] AST [Catalytic activity/Vol] 18 U/L Normal <=37 [facility] Comment on above: Performed By: #### L 500.4100, L100.0100, L500.4050, L506.1000 #### [facility] [address] [place], [address] Bilirubin [Mass/Vol] 0.34 mg/dL Normal 0.00-1.30 [facility] Comment on above: Performed By: #### L 500.4100, L100.0100, L500.4050, L506.1000 #### [facility] [address] [place], [address] BUN/CRE 20.8 RATIO High 10-20 [facility] Comment on above: Performed By: #### L 500.4100, L100.0100, L500.4050, L506.1000 #### [facility] [address] [place], [address] Calcium [Mass/Vol] 7.6 mg/dL Normal 7.6-11.0 [facility] Comment on above: Performed By: #### L 500.4100, L100.0100, L500.4050, L506.1000 #### [facility] [address] [place], [address] Chloride [Moles/Vol] 104 mmol/L Normal 98-108 [facility] Comment on above: Performed By: #### L 500.4100, L100.0100, L500.4050, L506.1000 #### [facility] [address] [place], [address] CO2 [Moles/Vol] 22.2 mmol/L Normal 21.0-32.0 [facility] Comment on above: Performed By: #### L 500.4100, L100.0100, L500.4050, L506.1000 #### [facility] [address] [place], [address] Creatinine [Mass/Vol] 0.96 mg/dL Normal 0.70-1.20 [facility] Comment on above: Performed By: #### L 500.4100, L100.0100, L500.4050, L506.1000 #### [facility] [address] [place], [address] GAP 14 Normal 5-15 [facility] Comment on above: Performed By: #### L 500.4100, L100.0100, L500.4050, L506.1000 #### [facility] [address] [place], [address] GFR/1.73 sq M.predicted among non-blacks MDRD (S/P/Bld) [Vol rate/Area] 78 mL/min/{1.73_m2} Normal >60 [facility] Comment on above: Result Comment: mL/m in/1.73m2 CKD-EPI Creatinine Equation (2020) Performed By: #### L 500.4100, L100.0100, L500.4050, L506.1000 #### [facility] [address] [place], [address] Globulin (S) [Mass/Vol] 2.9 g/dL Normal 2.2-4.2 [facility] Comment on above: Performed By: #### L 500.4100, L100.0100, L500.4050, L506.1000 #### [facility] [address] [place], [address] Glucose [Mass/Vol] 98 mg/dL Normal 70-99 [facility] Comment on above: Performed By: #### L 500.4100, L100.0100, L500.4050, L506.1000 #### [facility] [address] [place], [address] Potassium [Moles/Vol] 4.3 mmol/L Normal 3.3-5.1 [facility] Comment on above: Performed By: #### L 500.4100, L100.0100, L500.4050, L506.1000 #### [facility] [address] [place], [address] Sodium [Moles/Vol] 140 mmol/L Normal 133-145 [facility] Comment on above: Performed By: #### L 500.4100, L100.0100, L500.4050, L506.1000 #### [facility] [address] [place], [address] T PROT 7.3 g/dL Normal 5.9-8.4 [facility] Comment on above: Performed By: #### L 500.4100, L100.0100, L500.4050, L506.1000 #### [facility] [address] [place], [address] Urea nitrogen [Mass/Vol] 20 mg/dL High 4-19 [facility] Comment on above: Performed By: #### L 500.4100, L100.0100, L500.4050, L506.1000 #### [facility] [address] [place], [address] GFR/1.73 sq M.predicted korin g non-blacks MDRD (S/P/Bld) [Vol rate/Area]Ordered By: Virgil Blackwood on 12-10-2024 Estimated GFR (MDRD) Non-Af Amer 78 >60 [facility] Comment on above: mL/min/1.73m2 CKD-EP I Creatinine Equation (2020) Glomerular filtration rate ( GFR) estimation/1.73 sq m using serum, plasma, or whole bOrdered By: Virgil Blackwood on 12-10-2024 GFR/1.73 sq M.predicted among non-blacks MDRD (S/P/Bld) [Vol rate/Area] 78 mL/min/{1.73_m2} >60 [facility] Comment on above: mL/min/1.73m2 CKD-EP I Creatinine Equation (2020) LDL calc ser/plasOrdered By: Virgil Blackwood on 12-10-2024 Cholesterol in LDL [Mass/Vol] 49 mg/dL [facility] Comment on above: Zsoybikfkq=298-012 m g/dL & Higher Keyn=417 mg/dL or greater LDL Cholesterol, Calculated 49 mg/dL [facility] Comment on above: Rcpmeetyvx=201-565 m g/dL & Higher Gzxp=271 mg/dL or greater Laboratory - Chemistry and C hemistry - challengeOrdered By: Virgil Blackwood on 12-10-2024 AST [Catalytic activity/Vol] 18 U/L <38 [facility] Lipid Profileon 12-10-2024 CHOL:HDL 2.24 Normal [facility] Comment on above: Performed By: #### L 500.4100, L100.0100, L500.4050, L506.1000 #### [facility] [address] [place], [address] Cholesterol [Mass/Vol] 115 mg/dL Normal <=200 [facility] Comment on above: Result Comment: Chol esterol level, Desirable <200 mg/dL Borderline high cholesterol 200-239 mg/dL High cholesterol >=240 mg/dL Recommendations of the NCEP Adult Treatment Panel for the following risk-cutoff thresholds for the [place] population. Performed By: #### L 500.4100, L100.0100, L500.4050, L506.1000 #### [facility] [address] [place], [address] Cholesterol in HDL [Mass/Vol] 51 mg/dL Normal [facility] Comment on above: Result Comment: Sara onal Cholesterol Education Program (NCEP) guidelines: <40 mg/dL: Low HDL-cholesterol (major risk factor for CHD) >= 60 mg/dL: High HDL-cholesterol (negative risk factor for CHD) HDL-cholesterol is affected by a number of factors, e.g. smoking, exercise, hormones, sex and age. Performed By: #### L 500.4100, L100.0100, L500.4050, L506.1000 #### [facility] [address] [place], [address] Cholesterol in LDL [Mass/Vol] 49 mg/dL Normal [facility] Comment on above: Result Comment: Bord barbyq=020-566 mg/dL Higher Vfcm=784 mg/dL or greater Performed By: #### L 500.4100, L100.0100, L500.4050, L506.1000 #### [facility] [address] [place], [address] Cholesterol in VLDL [Mass/Vol] 14 mg/dL Normal 5-40 [facility] Comment on above: Performed By: #### L 500.4100, L100.0100, L500.4050, L506.1000 #### [facility] [address] [place], [address] Triglyceride [Mass/Vol] 72 mg/dL Normal [facility] Comment on above: Result Comment: The drugs N-Acetylcysteine and Metamizole may falsely depress this assay. Normal range: <150 mg/dL Borderline High: 150-199 mg/dL High: 200-499 mg/dL Very High: >500 mg/dL Performed By: #### L 500.4100, L100.0100, L500.4050, L506.1000 #### [facility] [address] [place], [address] PSA, total screeningOrdered By: Virgil Blackwood on 12-10-2024 Prostate Specific Antigen Screen 5.46 ng/mL High 0.02-4.00 [facility] Comment on above: This test was perfor med using the [employer] tPSA method. Measured values of a patient sample can vary depending on the testing procedure used. PSA values determined on patient samples by different testing procedures cannot be used interchangeably. If there is a change in PSA assays while monitoring therapy, sequential testing should be performed to confirm baseline values. PSA,Total - Annual Screenon 12-10-2024 PSA,TOT SCREEN 5.46 ng/mL High 0.02-4.00 [facility] Comment on above: Result Comment: This test was performed using the [employer] tPSA method. Measured values of a patient??sample can vary depending on the testing procedure used. PSA values determined on patient samples by different testing procedures cannot be used interchangeably. If there is a change in PSA assays while monitoring therapy, sequential testing should be performed to confirm baseline values. Performed By: #### L 500.4100, L100.0100, L500.4050, L506.1000 #### [facility] [address] [place], [address] Potassium (Unsp spec) [Mass/ Vol]Ordered By: Virgil Blackwood on 12-10-2024 Potassium [Moles/Vol] 4.3 mmol/L 3.3-5.1 [facility] Potassium measurement (mass/ volume)Ordered By: Virgil Blackwood on 12-10-2024 Potassium (Unsp spec) [Mass/Vol] 4.3 mmol/L 3.3-5.1 [facility] Screening total cholesterol/ high density lipoprotein (HDL) cholesterol ratioOrdered By: Virgil Blackwood on 12-10-2024 Cholesterol.total/Della sterol in HDL [Mass ratio] 2.24 {ratio} [facility] Serum creatinine measurement (mass/volume)Ordered By: Virgil Blackwood on 12-10-2024 Creatinine [Mass/Vol] 0.96 mg/dL 0.70-1.20 [facility] Serum globulin measurementOr dered By: Virgil Blackwood on 12-10-2024 Globulin (S) [Mass/Vol] 2.9 g/dL 2.2-4.2 [facility] Serum glucose measurement (m ass/volume)Ordered By: Virgil Blackwood on 12-10-2024 Glucose [Mass/Vol] 98 mg/dL 70-99 [facility] Serum or plasma alanine hickman otransferase (ALT) measurementOrdered By: Virgil Blackwood on 12-10-2024 ALT [Catalytic activity/Vol] 14 U/L <47 [facility] Serum or plasma albumin mauro urement (mass/volume)Ordered By: Virgil Blackwood on 12-10-2024 Albumin [Mass/Vol] 4.4 g/dL 3.4-4.8 [facility] Serum or plasma albumin/glob ulin mass ratioOrdered By: Virgil Blackwood on 12-10-2024 Albumin/Globulin [Mass ratio] 1.5 {ratio} 0.9-2.4 [facility] Serum or plasma alkaline annita sphatase measurementOrdered By: Virgil Blackwood on 12-10-2024 ALP [Catalytic activity/Vol] 81 U/L 40-129 [facility] Serum or plasma calcium mauro urement (mass/volume)Ordered By: Virgil Blackwood on 12-10-2024 Calcium [Mass/Vol] 7.6 mg/dL 7.6-11.0 [facility] Serum or plasma cholesterol in HDL measurement (mass/volume)Ordered By: Virgil Blackwood on 12-10-2024 Cholesterol in HDL [Mass/Vol] 51 mg/dL >40 [facility] Comment on above: National Cholesterol Education Program (NCEP) guidelines:<40 mg/dL: Low HDL-cholesterol (major risk factor for CHD)>= 60 mg/dL: High HDL-cholesterol (negative risk factor for CHD)HDL-cholesterol is affected by a number of factors, e.g. smoking, exercise, hormones, sex and age. Serum or plasma cholesterol measurement (mass/volume)Ordered By: Virgil Blackwood on 12-10-2024 Cholesterol [Mass/Vol] 115 mg/dL <201 [facility] Comment on above: Cholesterol level, D esirable <200 mg/dLBorderline high cholesterol 200-239 mg/dLHigh cholesterol >=240 mg/dLRecommendations of the NCEP Adult Treatment Panel for the following risk-cutoff thresholds for the [place] population. Serum or plasma urea nitroge n measurement (mass/volume)Ordered By: Virgil Blackwood on 12-10-2024 Urea nitrogen [Mass/Vol] 20 mg/dL High 4-19 [facility] Sodium levelOrdered By: Virgil Blackwood on 12-10-2024 Sodium [Moles/Vol] 140 mmol/L 133-145 [facility] Total proteinOrdered By: Ursula Blackwood on 12-10-2024 Protein [Mass/Vol] 7.3 g/dL 5.9-8.4 [facility] Triglycerides measurementOrd ered By: Virgil Blackwood on 12-10-2024 Triglyceride [Mass/Vol] 72 mg/dL <199 [facility] Comment on above: The drugs N-Acetylcy steine and Metamizole may falsely depress this assay. Normal range: <150 mg/dLBorderline High: 150-199 mg/dLHigh: 200-499 mg/dLVery High: >500 mg/dL HIP, UNI W/ Pelvis 2-3 Views on 11-20-2024 HIP, UNI W/ Pelvis 2-[address] [facility] Services [address] [place] [address] HIP, UNI W/ Pelvis 2-3 Views MR#: [id number] Acct: [id number] Name: JAMAAL BENAVIDES Rep #: [id number] : 1940 M 84 From: Mignon Wilde DO PCP: Dr. Rian Quiles MD Status: [facility] CLI Study: HIP, UNI W/ Pelvis 2-3 Views Date of Exam: 02/09 Exam# [id number] Ordering Dr: Rian Quiles MD PROCEDURE: HIP, UNI W/ PELVIS 2-3 VIEWS REASON FOR EXAM: Pain TECHNIQUE: Two views of the right hip with pelvis COMPARISON: None. FINDINGS: No fracture. No suspicious bone lesion. Normal alignment. Soft tissues are unremarkable. RAD/HIP, UNI W/ Pelvis 2-3 Views IMPRESSION: No acute fracture or dislocation. Reading Location: [facility] CC: Dr. Rian Quiles MD Train Planner: Signed Normal [facility] Knee 3 Viewson 11-20-[address] [facility] [address] [place] [address] Knee 3 Views MR#: [id number] Acct: [id number] Name: JAMAAL BENAVIDES Rep #: [id number] : 1940 84 From: Virgil Herrmann MD PCP: Dr. Rian Quiles MD Status: REG CLI Study: Knee 3 Views Date of Exam: 11/20/24 Exam# [id number] Ordering Dr: Rian Quiles MD PROCEDURE: KNEE 3 VIEWS REASON FOR EXAM: Pain TECHNIQUE: 3 view(s) of the right knee COMPARISON: None. FINDINGS: No fracture. No suspicious bone lesion. Moderate tricompartmental degenerative changes No effusion. Soft tissues are unremarkable. RAD/Knee 3 Views IMPRESSION: Moderate degenerative changes with no acute osseous abnormality Reading Location: [facility] CC: Dr. Rian Quiles MD Train Planner: Signed Normal [facility] Ferritinon 05-23-2024 Ferritin [Mass/Vol] 132 ng/mL Normal 26-388 [facility] Comment on above: Performed By: #### L 503.6030, L503.6550, L503.0105 #### [facility] [address] [facility] [place], [address] Iron+Iron Binding Capacityon 05-23-2024 Iron [Mass/Vol] 108 ug/dL Normal 65-175 [facility] Comment on above: Performed By: #### L 503.6030, L503.6550, L503.0105 #### [facility] [address] [place], [address] IRON SATURATION 28.5 Normal 15.0-55.0 [facility] Comment on above: Performed By: #### L 503.6030, L503.6550, L503.0105 #### [facility] [address] [place], [address] TIBC 379 ug/dL Normal 250-450 [facility] Comment on above: Performed By: #### L 503.6030, L503.6550, L503.0105 #### [facility] [address] [place], [address] Vitamin B12on 05-23-2024 Cobalamin (Vitamin B12) [Mass/Vol] 730 pg/mL Normal 211-911 [facility] Comment on above: Performed By: #### L 503.6030, L503.6550, L503.0105 #### [facility] [address] [place], [address] CBC W/Diff, Automatedon 04-19 Absolute Lymph 1.78 X10 3/uL Normal 0.83-4.51 [facility] Comment on above: Order Comment: Order Date: 05/08/24 Order Info: 0184-1 - CBCD Performed By: #### L 500.4100, L100.0100, L500.4050, L506.1000 #### [facility] [address] [place], [address] Absolute Neut 4.9 X10 3/uL Normal 2.0-7.7 [facility] Comment on above: Order Comment: Order Date: 05/08/24 Order Info: 0184-1 - CBCD Performed By: #### L 500.4100, L100.0100, L500.4050, L506.1000 #### [facility] [address] [place], [address] Basophils/100 WBC (Bld) 0.8 % Normal 0-1 [facility] Comment on above: Order Comment: Order Date: 05/08/24 Order Info: 0184-1 - CBCD Performed By: #### L 500.4100, L100.0100, L500.4050, L506.1000 #### [facility] [address] [place], [address] Eosinophils/100 WBC (Bld) 2.4 % Normal 0-5 [facility] Comment on above: Order Comment: Order Date: 05/08/24 Order Info: 018- - CBCD Performed By: #### L 500.4100, L100.0100, L500.4050, L506.1000 #### [facility] [address] [place], [address] Erythrocyte distribution width (RBC) [Ratio] 13.1 % Normal 11.6-14.6 [facility] Comment on above: Order Comment: Order Date: 05/08/24 Order Info: 0184- - CBCD Performed By: #### L 500.4100, L100.0100, L500.4050, L506.1000 #### [facility] [address] [place], [address] Hematocrit (Bld) [Volume fraction] 36.4 % Low 40-54 [facility] Comment on above: Order Comment: Order Date: 05/08/24 Order Info: 0184-1 - CBCD Performed By: #### L 500.4100, L100.0100, L500.4050, L506.1000 #### [facility] [address] [place], [address] Hemoglobin (Bld) [Mass/Vol] 12.4 g/dL Low 13.0-16.5 [facility] Comment on above: Order Comment: Order Date: 05/08/24 Order Info: 0184- - CBCD Performed By: #### L 500.4100, L100.0100, L500.4050, L506.1000 #### [facility] [address] [place], [address] IG% 0.300 Normal 0.0-0.9 [facility] Comment on above: Order Comment: Order Date: 05/08/24 Order Info: 018- - CBCD Result Comment: IG% - Immature Granulocytes (promyelocytes, myelocytes and metamyelocytes) > 1% indicates that a LEFT SHIFT is Present. Performed By: #### L 500.4100, L100.0100, L500.4050, L506.1000 #### [facility] [address] [place], [address] Lymphocytes/100 WBC (Bld) 23.5 % Normal 19-41 [facility] Comment on above: Order Comment: Order Date: 05/08/24 Order Info: 0184 - CBCD Performed By: #### L 500.4100, L100.0100, L500.4050, L506.1000 #### [facility] [address] [place], [address] MCH (RBC) [Entitic mass] 32.5 pg High 27.0-32.0 [facility] Comment on above: Order Comment: Order Date: 05/08/24 Order Info: 0184- - CBCD Performed By: #### L 500.4100, L100.0100, L500.4050, L506.1000 #### [facility] [address] [place], [address] MCHC (RBC) [Mass/Vol] 34.1 g/dL Normal 32-36 [facility] Comment on above: Order Comment: Order Date: 05/08/24 Order Info: 0184- - CBCD Performed By: #### L 500.4100, L100.0100, L500.4050, L506.1000 #### [facility] [address] [place], [address] MCV (RBC) [Entitic vol] 95.3 fL High 80-94 [facility] Comment on above: Order Comment: Order Date: 05/08/24 Order Info: 0184-1 - CBCD Performed By: #### L 500.4100, L100.0100, L500.4050, L506.1000 #### [facility] [address] [place], [address] Monocytes/100 WBC (Bld) 7.9 % Normal 0-10 [facility] Comment on above: Order Comment: Order Date: 05/08/24 Order Info: 0184- - CBCD Performed By: #### L 500.4100, L100.0100, L500.4050, L506.1000 #### [facility] [address] [place], [address] Neutrophils/100 WBC (Bld) 65.1 % Normal 47-70 [facility] Comment on above: Order Comment: Order Date: 05/08/24 Order Info: 0184- - CBCD Performed By: #### L 500.4100, L100.0100, L500.4050, L506.1000 #### [facility] [address] [place], [address] Nucleated RBC (Bld) [#/Vol] 0 10*3/uL Normal 0-5 [facility] Comment on above: Order Comment: Order Date: 05/08/24 Order Info: 0184-1 - CBCD Performed By: #### L 500.4100, L100.0100, L500.4050, L506.1000 #### [facility] [address] [place], [address] Platelet mean volume (Bld) [Entitic vol] 10.6 fL Normal 6.2-12.0 [facility] Comment on above: Order Comment: Order Date: 05/08/24 Order Info: 0184-1 - CBCD Performed By: #### L 500.4100, L100.0100, L500.4050, L506.1000 #### [facility] [address] [place], [address] Platelets (Bld) [#/Vol] 241 10*3/uL Normal 150-450 [facility] Comment on above: Order Comment: Order Date: 05/08/24 Order Info: 0184-1 - CBCD Performed By: #### L 500.4100, L100.0100, L500.4050, L506.1000 #### [facility] [address] [place], [address] RBC (Bld) [#/Vol] 3.82 10*6/uL Low 4.6-6.2 [facility] Comment on above: Order Comment: Order Date: 05/08/24 Order Info: 0184-1 - CBCD Performed By: #### L 500.4100, L100.0100, L500.4050, L506.1000 #### [facility] [address] [place], [address] RDW SD 46.0 fl High 35.1-43.9 [facility] Comment on above: Order Comment: Order Date: 05/08/24 Order Info: 0184-1 - CBCD Performed By: #### L 500.4100, L100.0100, L500.4050, L506.1000 #### [facility] [address] [place], [address] WBC (Bld) [#/Vol] 7.6 10*3/uL Normal 4.4-11.0 [facility] Comment on above: Order Comment: Order Date: 05/08/24 Order Info: 0184-1 - CBCD Performed By: #### L 500.4100, L100.0100, L500.4050, L506.1000 #### [facility] [address] [place], [address] Comprehensive Metabolic Prof ilon 05-13-2024 Albumin [Mass/Vol] 3.6 g/dL Normal 3.2-5.0 [facility] Comment on above: Order Comment: Order Date: 05/08/24 Order Info: 0786-1 - CMP Order Info: [id number] - LIPID Performed By: #### L 500.4100, L100.0100, L500.4050, L506.1000 #### [facility] [address] [place], [address] Albumin/Globulin [Mass ratio] 1.1 {ratio} Normal 0.9-2.4 [facility] Comment on above: Order Comment: Order Date: 05/08/24 Order Info: 0786-1 - CMP Order Info: [id number] - LIPID Performed By: #### L 500.4100, L100.0100, L500.4050, L506.1000 #### [facility] [address] [place], [address] ALK P 76 U/L Normal 45-117 [facility] Comment on above: Order Comment: Order Date: 05/08/24 Order Info: 0786-1 - CMP Order Info: [id number] - LIPID Performed By: #### L 500.4100, L100.0100, L500.4050, L506.1000 #### [facility] [address] [place], [address] ALT [Catalytic activity/Vol] 18 U/L Normal 16-61 [facility] Comment on above: Order Comment: Order Date: 05/08/24 Order Info: 0786-1 - CMP Order Info: [id number] - LIPID Performed By: #### L 500.4100, L100.0100, L500.4050, L506.1000 #### [facility] [address] [place], [address] AST [Catalytic activity/Vol] 17 U/L Normal 15-37 [facility] Comment on above: Order Comment: Order Date: 05/08/24 Order Info: 0786- - CMP Order Info: [id number] - LIPID Performed By: #### L 500.4100, L100.0100, L500.4050, L506.1000 #### [facility] [address] [place], [address] Bilirubin [Mass/Vol] 0.30 mg/dL Normal 0.20-1.00 [facility] Comment on above: Order Comment: Order Date: 05/08/24 Order Info: 07- - CMP Order Info: [id number] - LIPID Result Comment: For patients on eltrombopag therapy, use of Dimension [place]urel TBIL is not recommended. Performed By: #### L 500.4100, L100.0100, L500.4050, L506.1000 #### [facility] [address] [place], [address] BUN/CRE 19.3 RATIO Normal 10-20 [facility] Comment on above: Order Comment: Order Date: 05/08/24 Order Info: 0786- - CMP Order Info: [id number] - LIPID Performed By: #### L 500.4100, L100.0100, L500.4050, L506.1000 #### [facility] [address] [place], [address] CA,Total 9.1 mg/dL Normal 8.5-10.1 [facility] Comment on above: Order Comment: Order Date: 05/08/24 Order Info: 0786-1 - CMP Order Info: [id number] - LIPID Performed By: #### L 500.4100, L100.0100, L500.4050, L506.1000 #### [facility] [address] [place], [address] Chloride [Moles/Vol] 108 mmol/L High 98-107 [facility] Comment on above: Order Comment: Order Date: 05/08/24 Order Info: 0786-1 - CMP Order Info: [id number] - LIPID Performed By: #### L 500.4100, L100.0100, L500.4050, L506.1000 #### [facility] [address] [place], [address] CO2 [Moles/Vol] 24.0 mmol/L Normal 21.0-32.0 [facility] Comment on above: Order Comment: Order Date: 05/08/24 Order Info: 07 - CMP Order Info: [id number] - LIPID Performed By: #### L 500.4100, L100.0100, L500.4050, L506.1000 #### [facility] [address] [place], [address] Creatinine [Mass/Vol] 0.93 mg/dL Normal 0.70-1.30 [facility] Comment on above: Order Comment: Order Date: 05/08/24 Order Info: 07 - CMP Order Info: [id number] - LIPID Result Comment: The validity of the calculated GFR GFRAA in patients over 70 years has not been determined. Clinical correlation is essential. Performed By: #### L 500.4100, L100.0100, L500.4050, L506.1000 #### [facility] [address] [place], [address] EST GFR - AA 99 mL/min Normal >60 [facility] Comment on above: Order Comment: Order Date: 05/08/24 Order Info: 0786- - CMP Order Info: [id number] - LIPID Result Comment: Afri can [place] GFR Calc Performed By: #### L 500.4100, L100.0100, L500.4050, L506.1000 #### [facility] [address] [place], [address] GAP 8 Normal 5-15 [facility] Comment on above: Order Comment: Order Date: 05/08/24 Order Info: 0786- - CMP Order Info: [id number] - LIPID Performed By: #### L 500.4100, L100.0100, L500.4050, L506.1000 #### [facility] [address] [place], [address] GFR/1.73 sq M.predicted among non-blacks MDRD (S/P/Bld) [Vol rate/Area] 82 mL/min/{1.73_m2} Normal >60 [facility] Comment on above: Order Comment: Order Date: 05/08/24 Order Info: 0786-1 - CMP Order Info: [id number] - LIPID Result Comment: Non- GFR Calc Performed By: #### L 500.4100, L100.0100, L500.4050, L506.1000 #### [facility] [address] [place], [address] Globulin (S) [Mass/Vol] 3.3 g/dL Normal 2.2-4.2 [facility] Comment on above: Order Comment: Order Date: 05/08/24 Order Info: 0786-1 - CMP Order Info: [id number] - LIPID Performed By: #### L 500.4100, L100.0100, L500.4050, L506.1000 #### [facility] [address] [place], [address] Glucose [Mass/Vol] 89 mg/dL Normal 74-106 [facility] Comment on above: Order Comment: Order Date: 05/08/24 Order Info: 0786-1 - CMP Order Info: [id number] - LIPID Performed By: #### L 500.4100, L100.0100, L500.4050, L506.1000 #### [facility] [address] [place], [address] Potassium [Moles/Vol] 3.8 mmol/L Normal 3.5-5.1 [facility] Comment on above: Order Comment: Order Date: 05/08/24 Order Info: 0786-1 - CMP Order Info: [id number] - LIPID Performed By: #### L 500.4100, L100.0100, L500.4050, L506.1000 #### [facility] [address] [place], [address] Sodium [Moles/Vol] 140 mmol/L Normal 136-145 [facility] Comment on above: Order Comment: Order Date: 05/08/24 Order Info: 0786-1 - CMP Order Info: [id number] - LIPID Performed By: #### L 500.4100, L100.0100, L500.4050, L506.1000 #### [facility] [address] [place], [address] T PROT 6.9 g/dL Normal 6.4-8.2 [facility] Comment on above: Order Comment: Order Date: 05/08/24 Order Info: 0786- - CMP Order Info: [id number] - LIPID Performed By: #### L 500.4100, L100.0100, L500.4050, L506.1000 #### [facility] [address] [place], [address] Urea nitrogen [Mass/Vol] 18 mg/dL Normal 7-18 [facility] Comment on above: Order Comment: Order Date: 05/08/24 Order Info: 0786-1 - CMP Order Info: [id number] - LIPID Performed By: #### L 500.4100, L100.0100, L500.4050, L506.1000 #### [facility] [address] [place], [address] Lipid Profileon 05-13-2024 Cholesterol [Mass/Vol] 134 mg/dL Normal 200 [facility] Comment on above: Order Comment: Order Date: 05/08/24 Order Info: 0786-1 - CMP Order Info: [id number] - LIPID Result Comment: <200 mg/dL Desirable 200-240 mg/dL Borderline >240 mg/dL High Risk Performed By: #### L 500.4100, L100.0100, L500.4050, L506.1000 #### [facility] [address] [place], [address] Cholesterol in HDL [Mass/Vol] 46 mg/dL Normal [facility] Comment on above: Order Comment: Order Date: 05/08/24 Order Info: 0786-1 - CMP Order Info: [id number] - LIPID Result Comment: The drugs N-Acetylcysteine and Metamizole may falsely depress this assay. Reference Range HDL <40 mg/dL Low HDL Cholesterol HDL >or= 60 mg/dL High HDL Cholesterol Performed By: #### L 500.4100, L100.0100, L500.4050, L506.1000 #### [facility] [address] [place], [address] Cholesterol in LDL [Mass/Vol] 59 mg/dL Normal 0-130 [facility] Comment on above: Order Comment: Order Date: 05/08/24 Order Info: 0786- - CMP Order Info: [id number] - LIPID Performed By: #### L 500.4100, L100.0100, L500.4050, L506.1000 #### [facility] [address] [place], [address] Cholesterol in VLDL [Mass/Vol] 29 mg/dL Normal 5-40 [facility] Comment on above: Order Comment: Order Date: 05/08/24 Order Info: 0786-1 - CMP Order Info: [id number] - LIPID Performed By: #### L 500.4100, L100.0100, L500.4050, L506.1000 #### [facility] [address] [place], [address] Triglyceride [Mass/Vol] 146 mg/dL Normal [facility] Comment on above: Order Comment: Order Date: 05/08/24 Order Info: 0786-1 - CMP Order Info: [id number] - LIPID Result Comment: The drugs N-Acetylcysteine and Metamizole may falsely depress this assay. Serum Triglycerides Reference Interval Normal <150 mg/dL Borderline high 150 - 199 mg/dL High 200 - 499 mg/dL Very High > or = 500 mg/dL Performed By: #### L 500.4100, L100.0100, L500.4050, L506.1000 #### [facility] [address] [place], [address] Vitamin D,25 Hydroxyon 05-13 Vitamin D 25-OH 58.7 ng/mL Normal [facility] Comment on above: Order Comment: Order Date: 05/08/24 Order Info: [id number] - VITD25 Result Comment: Yulissa min D 25(OH) Status Range Deficiency <20 ng/mL (50nmol/L) Insufficiency 20 - 30 ng/mL (50 - 75 nmol/L) Sufficiency 30 - 100 ng/mL (75 - 250 nmol/L) Toxicity >100 ng/mL (>250 nmol/L) Performed By: #### L 500.4100, L100.0100, L500.4050, L506.1000 #### [facility] [address] [place], [address] No Panel InformationOrdered By: Sweetie Daugherty on 10-12-2023 Percent Free Prostate Specific Ag 1.85 ng/mL N/A [facility] Comment on above: Jarett ECLIA methodol ogy. Prostate Specific Ag, Ultra-Sensitv 8.700 ng/mL 0.000-4.000 [facility] Comment on above: Jarett ECLIA methodol ogy.According to the [place] [employer], Serum PSAshould decrease and remain at undetectable levels afterradical prostatectomy. The AUA defines biochemicalrecurrence as an initial PSA value 0.200 ng/mL or greaterfollowed by a subsequent confirmatory PSA value 0.200 ng/mLor greater. Values obtained with different assay methods orkits cannot be used interchangeably. Results cannot beinterpreted as absolute evidence of the presence or absenceof malignant disease. Serum or plasma free prostat e specific antigen/total prostate specific antigen ratioOrdered By: Sweetie Daugherty on 10-12-2023 Free PSA/Total PSA [Mass fraction] 21.3 % . [facility] Comment on above: The table below list s the probability of prostate cancer formen with non-suspicious DIEGO results and total PSA between4 and 10 ng/mL, by patient age (Karie et al, NADIA 1998,279:1542). % Free PSA 50-64 yr 65-75 yr 0.00-10.00% 56% 55% 10.01-15.00% 24% 35% 15.01-20.00% 17% 23% 20.01-25.00% 10% 20% >25.00% 5% 9%Please note: Karie et al did not make specific recommendations regarding the use of percent free PSA for any other population of men.Performed at: [facility] [id number] Director: Harry Desai PhD, Phone: [phone] Absolute lymphocyte countOrd ered By: Dr. Quiles on 10-13-2022 Lymphocytes Auto (Unsp spec) [#/Vol] 2.82 10*3/uL 0.83-4.51 [facility] Basophil percentageOrdered B y: Dr. Quiles on 10-13-2022 Basophil percentage 0 SEEN /hpf 0-5 [facility] Basophils/100 WBC (Bld) 0.8 % 0-1 [facility] Bilirubin [Mass/Vol] 0.30 mg/dL 0.20-1.00 [facility] Comment on above: For patients on eltr ombopag therapy, use of Dimension [place] TBIL is not recommended. Chloride [Moles/Vol] 106 mmol/L 98-107 [facility] Cholesterol [Mass/Vol] 97 mg/dL <200 [facility] Comment on above: <200 mg/dL Desirable 200-240 mg/dL Borderline >240 mg/dL High Risk Eosinophils/100 WBC (Bld) 4.1 % 0-5 [facility] Glucose [Mass/Vol] 92 mg/dL 74-106 [facility] Neutrophils (Bld) [#/Vol] 4.0 10*3/uL 2.0-7.7 [facility] Neutrophils/100 WBC (Bld) 50.7 % 47-70 [facility] Potassium [Moles/Vol] 4.1 mmol/L 3.5-5.1 [facility] Protein [Mass/Vol] 7.0 g/dL 6.4-8.2 [facility] Sodium [Moles/Vol] 142 mmol/L 136-145 [facility] Triglyceride [Mass/Vol] 79 mg/dL <199 [facility] Comment on above: The drugs N-Acetylcy steine and Metamizole may falsely depress this assay.Serum Triglycerides Reference Interval Normal <150 mg/dL Borderline high 150 - 199 mg/dL High 200 - 499 mg/dL Very High > or = 500 mg/dL WBC (Bld) [#/Vol] 7.8 10*3/uL 4.4-11.0 [facility] Bilirubin Test strip Ql (U)O rdered By: Dr. Quiles on 10-13-2022 Bilirubin Ql (U) Negative Negative [facility] Blood erythrocytes count (nu mber/volume)Ordered By: Dr. Quiles on 10-13-2022 RBC (Bld) [#/Vol] 3.87 10*6/uL 4.6-6.2 [facility] Blood hemoglobin measurement (mass/volume)Ordered By: Dr. Quiles on 10-13-2022 Hemoglobin (Bld) [Mass/Vol] 12.2 g/dL 13.0-16.5 [facility] Blood lymphocytes/100 leukoc ytesOrdered By: Dr. Quiles on 10-13-2022 Lymphocytes/100 WBC (Bld) 36.0 % 19-41 [facility] Blood monocytes/100 leukocyt esOrdered By: Dr. Quiles on 10-13-2022 Monocytes/100 WBC (Bld) 8.0 % 0-10 [facility] Blood platelet mean volumeOr dered By: Dr. Quiles on 10-13-2022 Platelet mean volume (Bld) [Entitic vol] 10.7 fL 6.2-12.0 [facility] Determination of erythrocyte mean corpuscular volume (MCV)Ordered By: Dr. Quiles on 10-13-2022 MCV (RBC) [Entitic vol] 96.4 fL 80-94 [facility] Hematocrit Auto (Bld) [Volum e fraction]Ordered By: Dr. Quiles on 10-13-2022 Hematocrit (Bld) [Volume fraction] 37.3 % 40-54 [facility] Iron measurement (mass/mass) Ordered By: Dr. Quiles on 10-13-2022 Iron (Unsp spec) [Mass/Mass] 93 ug/dL 65-175 [facility] Ketones Test strip Ql (U)Ord ered By: Dr. Quiles on 10-13-2022 Ketones Ql (U) Negative Negative [facility] Laboratory - Chemistry and C hemistry - challengeOrdered By: Dr. Quiles on 10-13-2022 ALP [Catalytic activity/Vol] 82 U/L 45-117 [facility] ALT [Catalytic activity/Vol] 26 U/L 16-61 [facility] CO2 [Moles/Vol] 26.0 mmol/L 21.0-32.0 [facility] Cobalamin (Vitamin B12) [Mass/Vol] 662 pg/mL 211-911 [facility] Globulin (S) [Mass/Vol] 3.5 g/dL 2.2-4.2 [facility] Urea nitrogen/Creatinine [Mass ratio] 23.4 mg/mg 10-20 [facility] Laboratory - Hematology and Cell countsOrdered By: Dr. Quiles on 10-13-2022 Erythrocyte distribution width (RBC) [Entitic vol] 44.1 fL 35.1-43.9 [facility] Erythrocyte distribution width (RBC) [Ratio] 12.5 % 11.6-14.6 [facility] Immature granulocytes/100 WBC (Bld) 0.400 % 0.0-0.9 [facility] Comment on above: IG% - Immature Granu locytes (promyelocytes, myelocytes and metamyelocytes) > 1% indicates that a LEFT SHIFT is Present. MCH (RBC) [Entitic mass] 31.5 pg 27.0-32.0 [facility] Nucleated RBC/100 WBC (Bld) [Ratio] 0 % 0-5 [facility] MCHC Auto (RBC) [Mass/Vol]Or dered By: Dr. Quiles on 10-13-2022 MCHC (RBC) [Mass/Vol] 32.7 g/dL 32-36 [facility] Mucus LM Ql (Urine sed)Order ed By: Dr. Quiles on 10-13-2022 Mucus Ql (Urine sed) 0 SEEN /hpf [facility] Nitrite Test strip Ql (U)Ord ered By: Dr. Quiles on 10-13-2022 Nitrite Ql (U) Negative Negative [facility] No Panel InformationOrdered By: Dr. Quiles on 10-13-2022 Estimated GFR (MDRD) Amer 104 mL/min >60 [facility] Comment on above: GFR Calc Estimated GFR (MDRD) Non-Af Amer 86 mL/min >60 [facility] Comment on above: Non- GFR Calc Total Iron Binding Capacity 318 ug/dL 250-450 [facility] Vitamin D 25-Hydroxy 60.4 ng/mL [facility] Comment on above: Vitamin D 25(OH) Sta tus Range Deficiency <20 ng/mL (50nmol/L) Insufficiency 20 - 30 ng/mL (50 - 75 nmol/L) Sufficiency 30 - 100 ng/mL (75 - 250 nmol/L) Toxicity >100 ng/mL (>250 nmol/L) Platelets bldOrdered By: Dr. Quiles on 10-13-2022 Platelets (Bld) [#/Vol] 301 10*3/uL 150-450 [facility] Protein Test strip Ql (U)Ord ered By: Dr. Quiles on 10-13-2022 Protein Ql (U) 30 mg/dl Negative [facility] Serum or plasma albumin mauro urement (mass/volume)Ordered By: Dr. Quiles on 10-13-2022 Albumin [Mass/Vol] 3.5 g/dL 3.2-5.0 [facility] Serum or plasma albumin/glob ulin mass ratioOrdered By: Dr. Quiles on 10-13-2022 Albumin/Globulin [Mass ratio] 1.0 {ratio} 0.9-2.4 [facility] Serum or plasma calcium mauro urement (mass/volume)Ordered By: Dr. Quiles on 10-13-2022 Calcium [Mass/Vol] 8.4 mg/dL 8.5-10.1 [facility] Serum or plasma cholesterol in HDL measurement (mass/volume)Ordered By: Dr. Quiles on 10-13-2022 Cholesterol in HDL [Mass/Vol] 35 mg/dL >40 [facility] Comment on above: The drugs N-Acetylcy steine and Metamizole may falsely depress this assay. Reference Range HDL <40 mg/dL Low HDL Cholesterol HDL >or= 60 mg/dL High HDL Cholesterol Serum or plasma cholesterol in VLDL measurement (mass/volume)Ordered By: Dr. Quiles on 10-13-2022 Cholesterol in VLDL [Mass/Vol] 16 mg/dL 5-40 [facility] Serum or plasma creatinine m easurement (mass/volume)Ordered By: Dr. Quiles on 10-13-2022 Creatinine [Mass/Vol] 0.90 mg/dL 0.70-1.30 [facility] Comment on above: The validity of the calculated GFR & GFRAA in patients over 70 years has not been determined. Clinical correlation is essential. Serum or plasma ferritin khalif surement (mass/volume)Ordered By: Dr. Quiles on 10-13-2022 Ferritin [Mass/Vol] 138 ng/mL 26-388 [facility] Serum or plasma iron saturat ion measurement (mass fraction)Ordered By: Dr. Quiles on 10-13-2022 Iron saturation [Mass fraction] 29.2 % 15.0-55.0 [facility] Serum or plasma low density lipoprotein (LDL) cholesterol measurement (mass/volume)Ordered By: Dr. Quiles on 10-13-2022 Cholesterol in LDL [Mass/Vol] 46 mg/dL 0-130 [facility] Serum or plasma urea nitroge n measurement (mass/volume)Ordered By: Dr. Quiles on 10-13-2022 Urea nitrogen [Mass/Vol] 21 mg/dL 7-18 [facility] Squamous epithelial cells de tection in urine sediment by light microscopyOrdered By: Dr. Quiles on 10-13-2022 Epithelial cells.squamous LM Ql (Urine sed) 0-5 SEEN /hpf 0-5 [facility] Thin prep Papanicolaou smear with manual screeningOrdered By: Dr. Quiles on 10-13-2022 Thin prep Papanicolaou smear with manual screening 15 U/L 15-37 [facility] Thin prep Papanicolaou smear with manual screening 10 5-15 [facility] Urine blood detectionOrdered By: Dr. Quiles on 10-13-2022 RBC Ql (U) Negative Negative [facility] RBC Ql (U) 0 SEEN /hpf 0-5 [facility] Urine clarityOrdered By: Dr. Quiles on 10-13-2022 Clarity (U) Clear Clear [facility] Urine color determinationOrd ered By: Dr. Quiles on 10-13-2022 Color (U) Yellow Yellow [facility] Urine glucose detectionOrder ed By: Dr. Quiles on 10-13-2022 Glucose Ql (U) Normal mg/dl Normal [facility] Urine leukocyte esterase det ection by dipstickOrdered By: Dr. Quiles on 10-13-2022 Leukocyte esterase Test strip Ql (U) Negative Negative [facility] Urine pHOrdered By: Dr. Deonna zabala on 10-13-2022 pH (U) 7.0 [pH] 5.0 - 8.0 [facility] Urine sediment bacteria coun t by microscopy (number/high power field)Ordered By: Dr. Quiles on 10-13-2022 Bacteria LM.HPF (Urine sed) [#/Area] 0 /[HPF] None Seen [facility] Urine specific gravity measu rementOrdered By: Dr. Quiles on 10-13-2022 Specific gravity (U) [Rel density] 1.010 1.002-1.030 [facility] Urobilinogen Auto test strip Ql (U)Ordered By: Dr. Quiles on 10-13-2022 Urobilinogen Ql (U) Normal mg/dl Normal [facility] No Panel InformationOrdered By: Dr. Bearden on 10-03-2022 Prostate Specific Antigen Total 8.78 ng/mL 0.0-4.0 [facility] Comment on above: This test was perfor med using the TPSA assay method for the[facility]. Values obtained with differentassay methods cannot be used interchangably.When changing PSA assays in the course of monitoring apatient, additional sequential testing should be carriedout to confirm baseline values. No Panel InformationOrdered By: Dr. Dodge on 09-23-2022 Nasopharyngeal Culture [facility] Gram stain for investigation of transfusion reactionOrdered By: Dr. Dodge on 09-22-2022 Microscopic observation Gram stain Nom (Unsp spec) [facility] Absolute lymphocyte counton 04-11-2022 Lymphocytes Auto (Unsp spec) [#/Vol] 2.71 10*3/uL 0.83-4.51 [facility] Work Phone: Basophil percentageon 2021 Basophil percentage 0 SEEN /hpf 0-5 [facility] Work Phone: Basophils/100 WBC (Bld) 0.7 % 0-1 [facility] Work Phone: Bilirubin [Mass/Vol] 0.50 mg/dL 0.20-1.00 [facility] Work Phone: Comment on above: For patients on eltr ombopag therapy, use of [place]ension [place] TBIL is not recommended. Chloride [Moles/Vol] 106 mmol/L 98-107 [facility] Work Phone: Cholesterol [Mass/Vol] 128 mg/dL <200 [facility] Work Phone: Comment on above: <200 mg/dL Desirable 200-240 mg/dL Borderline >240 mg/dL High Risk Eosinophils/100 WBC (Bld) 3.3 % 0-5 [facility] Work Phone: Glucose [Mass/Vol] 95 mg/dL 74-106 [facility] Work Phone: [phone] Neutrophils (Bld) [#/Vol] 4.8 10*3/uL 2.0-7.7 [facility] Work Phone: Neutrophils/100 WBC (Bld) 55.8 % 47-70 [facility] Work Phone: Potassium [Moles/Vol] 4.0 mmol/L 3.5-5.1 [facility] Work Phone: [phone] Protein [Mass/Vol] 7.1 g/dL 6.4-8.2 [facility] Work Phone: Sodium [Moles/Vol] 140 mmol/L 136-145 [facility] Work Phone: Triglyceride [Mass/Vol] 95 mg/dL <199 [facility] Work Phone: Comment on above: The drugs N-Acetylcy steine and Metamizole may falsely depress this assay.Serum Triglycerides Reference Interval Normal <150 mg/dL Borderline high 150 - 199 mg/dL High 200 - 499 mg/dL Very High > or = 500 mg/dL WBC (Bld) [#/Vol] 8.6 10*3/uL 4.4-11.0 [facility] Work Phone: Bilirubin Test strip Ql (U)o n 04-11-2022 Bilirubin Ql (U) Negative Negative [facility] Work Phone: Blood erythrocytes count (nu mber/volume)on 04-11-2022 RBC (Bld) [#/Vol] 4.06 10*6/uL 4.6-6.2 [facility] Work Phone: Blood hemoglobin measurement (mass/volume)on 04-11-2022 Hemoglobin (Bld) [Mass/Vol] 13.1 g/dL 13.0-16.5 [facility] Work Phone: Blood lymphocytes/100 leukoc yteson 04-11-2022 Lymphocytes/100 WBC (Bld) 31.5 % 19-41 [facility] Work Phone: Blood monocytes/100 leukocyt eson 04-11-2022 Monocytes/100 WBC (Bld) 8.5 % 0-10 [facility] Work Phone: Blood platelet mean volumeon 04-11-2022 Platelet mean volume (Bld) [Entitic vol] 11.0 fL 6.2-12.0 [facility] Work Phone: Determination of erythrocyte mean corpuscular volume (MCV)on 04-11-2022 MCV (RBC) [Entitic vol] 96.8 fL 80-94 [facility] Work Phone: Hematocrit Auto (Bld) [Volum e fraction]on 04-11-2022 Hematocrit (Bld) [Volume fraction] 39.3 % 40-54 [facility] Work Phone: Ketones Test strip Ql (U)on 04-11-2022 Ketones Ql (U) Negative Negative [facility] Work Phone: Laboratory - Chemistry and C hemistry - challengeon 04-11-2022 ALP [Catalytic activity/Vol] 70 U/L 45-117 [facility] Work Phone: ALT [Catalytic activity/Vol] 19 U/L 16-61 [facility] Work Phone: CO2 [Moles/Vol] 25.0 mmol/L 21.0-32.0 [facility] Work Phone: Globulin (S) [Mass/Vol] 3.4 g/dL 2.2-4.2 [facility] Work Phone: Urea nitrogen/Creatinine [Mass ratio] 18.3 mg/mg 10-20 [facility] Work Phone: Laboratory - Hematology and Cell countson 04-11-2022 Erythrocyte distribution width (RBC) [Entitic vol] 45.5 fL 35.1-43.9 [facility] Work Phone: Erythrocyte distribution width (RBC) [Ratio] 12.6 % 11.6-14.6 [facility] Work Phone: Immature granulocytes/100 WBC (Bld) 0.200 % 0.0-0.9 [facility] Work Phone: Comment on above: IG% - Immature Granu locytes (promyelocytes, myelocytes and metamyelocytes) > 1% indicates that a LEFT SHIFT is Present. MCH (RBC) [Entitic mass] 32.3 pg 27.0-32.0 [facility] Work Phone: Nucleated RBC/100 WBC (Bld) [Ratio] 0 % 0-5 [facility] Work Phone: MCHC Auto (RBC) [Mass/Vol]on 04-11-2022 MCHC (RBC) [Mass/Vol] 33.3 g/dL 32-36 [facility] Work Phone: Mucus LM Ql (Urine sed)on Mucus Ql (Urine sed) 0 SEEN /hpf [facility] Work Phone: Nitrite Test strip Ql (U)on 04-11-2022 Nitrite Ql (U) Negative Negative [facility] Work Phone: No Panel Informationon 04-11 Estimated GFR (MDRD) Amer 107 mL/min >60 [facility] Work Phone: Comment on above: GFR Calc Estimated GFR (MDRD) Non-Af Amer 89 mL/min >60 [facility] Work Phone: Comment on above: Non- GFR Calc Vitamin D 25-Hydroxy 59.0 ng/mL [facility] Work Phone: Comment on above: Vitamin D 25(OH) Sta tus Range Deficiency <20 ng/mL (50nmol/L) Insufficiency 20 - 30 ng/mL (50 - 75 nmol/L) Sufficiency 30 - 100 ng/mL (75 - 250 nmol/L) Toxicity >100 ng/mL (>250 nmol/L) Platelets bldon 04-11-2022 Platelets (Bld) [#/Vol] 247 10*3/uL 150-450 [facility] Work Phone: Protein Test strip Ql (U)on 04-11-2022 Protein Ql (U) Negative Negative [facility] Work Phone: Serum or plasma albumin mauro urement (mass/volume)on 04-11-2022 Albumin [Mass/Vol] 3.7 g/dL 3.2-5.0 [facility] Work Phone: Serum or plasma albumin/glob ulin mass ratioon 04-11-2022 Albumin/Globulin [Mass ratio] 1.1 {ratio} 0.9-2.4 [facility] Work Phone: Serum or plasma calcium mauro urement (mass/volume)on 04-11-2022 Calcium [Mass/Vol] 8.9 mg/dL 8.5-10.1 [facility] Work Phone: Serum or plasma cholesterol in HDL measurement (mass/volume)on 04-11-2022 Cholesterol in HDL [Mass/Vol] 45 mg/dL >40 [facility] Work Phone: Comment on above: The drugs N-Acetylcy steine and Metamizole may falsely depress this assay. Reference Range HDL <40 mg/dL Low HDL Cholesterol HDL >or= 60 mg/dL High HDL Cholesterol Serum or plasma cholesterol in VLDL measurement (mass/volume)on 04-11-2022 Cholesterol in VLDL [Mass/Vol] 19 mg/dL 5-40 [facility] Work Phone: Serum or plasma creatinine m easurement (mass/volume)on 04-11-2022 Creatinine [Mass/Vol] 0.88 mg/dL 0.70-1.30 [facility] Work Phone: Comment on above: The validity of the calculated GFR & GFRAA in patients over 70 years has not been determined. Clinical correlation is essential. Serum or plasma low density lipoprotein (LDL) cholesterol measurement (mass/volume)on 04-11-2022 Cholesterol in LDL [Mass/Vol] 64 mg/dL 0-130 [facility] Work Phone: Serum or plasma urea nitroge n measurement (mass/volume)on 04-11-2022 Urea nitrogen [Mass/Vol] 16 mg/dL 7-18 [facility] Work Phone: Squamous epithelial cells de tection in urine sediment by light microscopyon 04-11-2022 Epithelial cells.squamous LM Ql (Urine sed) 0 SEEN /hpf 0-5 [facility] Work Phone: Thin prep Papanicolaou smear with manual screeningon 04-11-2022 Thin prep Papanicolaou smear with manual screening 15 U/L 15-37 [facility] Work Phone: Thin prep Papanicolaou smear with manual screening 9 5-15 [facility] Work Phone: Urine blood detectionon 03-19 RBC Ql (U) Negative Negative [facility] Work Phone: RBC Ql (U) 0 SEEN /hpf 0-5 [facility] Work Phone: Urine clarityon 04-11-2022 Clarity (U) Clear Clear [facility] Work Phone: Urine color determinationon 04-11-2022 Color (U) Yellow Yellow [facility] Work Phone: Urine glucose detectionon Glucose Ql (U) Normal mg/dl Normal [facility] Work Phone: Urine leukocyte esterase det ection by dipstickon 04-11-2022 Leukocyte esterase Test strip Ql (U) Negative Negative [facility] Work Phone: Urine pHon 04-11-2022 pH (U) 7.0 [pH] 5.0 - 8.0 [facility] Work Phone: Urine sediment bacteria coun t by microscopy (number/high power field)on 04-11-2022 Bacteria LM.HPF (Urine sed) [#/Area] 0 /[HPF] None Seen [facility] Work Phone: Urine specific gravity measu rementon 04-11-2022 Specific gravity (U) [Rel density] 1.010 1.002-1.030 [facility] Work Phone: Urobilinogen Auto test strip Ql (U)on 04-11-2022 Urobilinogen Ql (U) Normal mg/dl Normal [facility] Work Phone: Vital Signs Date Time Vital Sign Value Performing Clinician Faci lity 01-07-2025 10:00-0400 Diastolic blood pressure 61 mm[Hg] Bennie Golias PT Work Phone: [facility] 01-07-2025 10:00-0400 Heart rate 77 /min Bennie Golias PT Work Phone: [facility] 01-07-2025 10:00-0400 Systolic blood pressure 115 mm[Hg] Bennie Golias PT Work Phone: [facility] Encounters Encounter Date Encounter Type Care Provider Facility Start: 03-20-2025 End: 03-20-[address] Rian Quiles MD Work Phone: [facility] Start: 03-20-2025 End: 03-20-[address] Marco Bearden MD -[facility] [place] Work Phone: Start: 03-20-2025 End: 03-20-2025 ambulatory Marco Bearden Facility:[facility] Start: 01-21-2025 End: 01-21-2025 ambulatory Bennie Golias PT Work Phone: [facility] Comment on above: Radiculopathy, lumba r region (Primary Dx) Start: 01-07-2025 End: 01-07-2025 ambulatory Bennie Golias PT Work Phone: [facility] Comment on above: Radiculopathy, lumba r region (Primary Dx) Start: 12-16-2024 Encounter for genera l adult medical examination without abnormal findings Virgil [facility] Start: 12-10-2024 End: 12-10-[address] Rian Quiles MD Work Phone: [facility] Work Phone: Start: 12-10-2024 End: 12-10-[address] Virgil Blackwood MD -Laboratory, [place] Work Phone: Start: 12-10-2024 End: 12-10-2024 ambulatory Virgil Blackwood Facility:[facility] Start: 11-20-2024 End: 11-20-[address] Rian Quiles MD Work Phone: [facility] Work Phone: Start: 11-20-2024 End: 11-20-[address] Rian Quiles MD -Radiology, [place] Work Phone: Start: 11-20-2024 End: 11-20-2024 ambulatory Rian Quiles Facility:[facility] Start: 05-23-2024 End: 05-23-2024 ambulatory [facility] Facility:[facility] Start: 05-13-2024 End: 05-13-2024 ambulatory [facility] Facility:[facility] Start: 10-12-2023 End: 10-12-2023 ambulatory [facility] Work Phone: Start: 10-12-2023 End: 10-12-2023 Patient encounter procedure [facility]-Laboratory Work Phone: Start: 10-13-2022 End: 10-13-2022 ambulatory [facility] Work Phone: Start: 10-13-2022 End: 10-13-2022 Patient encounter procedure [facility] Start: 10-03-2022 End: 10-03-2022 ambulatory [facility] Work Phone: Start: 10-03-2022 End: 10-03-2022 [facility] Start: 09-21-2022 End: 09-21-2022 ambulatory [facility] Work Phone: Start: 09-21-2022 End: 09-21-2022 Patient encounter procedure [facility]-Laboratory, [facility] Start: 04-11-2022 End: 04-11-2022 Patient encounter procedure [facility] Procedures Date Procedure Procedure Detail Performing Clinician Start: 03-20-2025 Assay of prostate sp ecific antigen total Dr. Rian Quiles MD Work Phone: Comment on above: This test was perfor med using the [employer] tPSA method. Measured values of a patient sample can vary depending on the testing procedure used. PSA values determined on patient samples by different testing procedures cannot be used interchangeably. If there is a change in PSA assays while monitoring therapy, sequential testing should be performed to confirm baseline values. Start: 12-10-2024 Prostate specific an tigen measurement Dr. Rian Quiles MD Work Phone: Comment on above: This test was perfor med using the [employer] tPSA method. Measured values of a patient sample can vary depending on the testing procedure used. PSA values determined on patient samples by different testing procedures cannot be used interchangeably. If there is a change in PSA assays while monitoring therapy, sequential testing should be performed to confirm baseline values. Start: 11-20-2024 Plain x-ray of pelvi s and lower extremity Dr. Rian Quiles MD Work Phone: Start: 11-20-2024 XR knee, [address] Barb Quiles MD Work Phone: Investigation of transfusion reaction Nasopharyngeal Culture Plan of Treatment Date Care Activity Detail Author Start: 02-11-2025 End: 02-11-2025 ambulatory 02/11/2025 10:45 AM EDT OT/PT/Speech Visit [facility] [address] [place] [address] Bennie Magallon, PT [address] [place] [address] right side leg pain [facility] Comment on above: right side leg pain Start: 02-04-2025 End: 02-04-2025 ambulatory 02/04/2025 8:45 AM EDT OT/PT/Speech Visit [facility] [address] [place] [address] Summer Nathan, [employer] [address] [place] [address] right side leg pain [facility] Comment on above: right side leg pain Start: 01-28-2025 End: 01-28-2025 ambulatory 01/28/2025 8:45 AM EDT OT/PT/Speech Visit [facility] [address] [place] [address] Summer Nathan, SUPERVISING [employer]UC[employer] [address] [place] [address] right side leg pain [facility] Comment on above: right side leg pain Start: 01-21-2025 End: 01-21-2025 ambulatory 01/21/2025 10:45 AM EDT OT/PT/Speech Visit [facility] [address] [place] [id number] Bennie Magallon, PT [address] [place] [address] right side leg pain [facility] Comment on above: right side leg pain Start: 09-18-2024 Advance Directive Discussion Advance Directive Discussion [facility] Start: 05-19-2024 Covid-19 Vaccine () Covid-19 Vaccine () [facility] Start: 11-20-2014 RSV Vaccine (1 - 1-d ose 75+ series) RSV Vaccine (1 - 1-dose 75+ series) [facility] Start: 11-20-1984 Diabetes Screening Diabetes Screenin g [facility] Start: 11-20-1958 Urine microalbumin profile DTaP,Tdap,Td Vaccine (1 - Tdap) [facility] Start: 11-20-1957 Anxiety Screening Anxiety Screening [facility] Start: 11-20-1957 Depression Screening Depression Scre ening [facility] Immunizations Immunization Date Immunization Notes Care Provider Fa cility 11-12-2020 Covid (Moderna) [facility] 10-15-2020 Covid (Moderna) [facility] 06-18-2010 pneumococcal polysaccharide vaccine, 23 valent Bennie Magallon PT Work Phone: [facility] Payers Date Payer Category Payer Medicare (Managed Care) [employer] [id number] 2024 Medicare [id number] 2024 Self-pay [id number] Medicare [id number] Medicare [id number] Unknown [id number] Unknown [id number] Unknown [id number] Unknown [id number] Unknown [id number] Social History Date Type Detail Facility Start: 12-21-2015 End: 12-21-2015 Tobacco smoking status NHIS Unknown if ever smoked [facility] Start: 1940 Sex Assigned At Male [facility]: 12[facility]21-[facility] Start: 12-03-2024 End: 12-16-2024 Sex Male (finding) [facility] History of tobacco use Cigarette Smoker C [facility] Start: 05-04-2022 Alcoholic beverage intake Current drinker of alcohol (finding) [facility] Start: 05-04-2022 End: 01-21-2025 History of Social function [facility] Start: 05-04-2022 End: 01-21-2025 Tobacco use panel [facility] National Score (1-10 0), lower number is lower risk 72 [facility] Start: 1940 Sex assigned at Not on file C [facility] Functional Status Date Assessment Result Facility 05-26-2014 Are you deaf, or do you have serious difficulty hearing No 05/26/2014 10:41 AM Sade Varghese Lpn [facility] Work Phone: 05-26-2014 Are you blind, or do you have serious difficulty seeing, even when wearing glasses No 05/26/2014 10:41 AM Sade Varghese Lpn [facility] 05-26-2014 Do you have serious difficulty walking or climbing stairs No 05/26/2014 10:41 AM Sade Varghese Lpn [facility] 05-26-2014 Do you have difficul ty dressing or bathing No 05/26/2014 10:41 AM Sade Varghese Lpn [facility] 05-26-2014 Because of a physica l, mental, or emotional condition, do you have difficulty doing errands alone such as visiting a physician's office or shopping No 05/26/2014 10:41 AM Sade Varghese Lpn [facility] Mental Status Date Assessment Result Facility 05-26-2014 Because of a physica l, mental, or emotional condition, do you have serious difficulty concentrating, remembering, or making decisions No 05/26/2014 10:41 AM Sade Varghese Lpn [facility] Progress note 01-21-2025 Note Date & Type Note Facility 01-21-2025 Note HNO ID: [id number] Author: BENNIE MAGALLON PT Service: ? Author Type: Physical Therapist Type: Progress Notes Filed: 01/21/2025 11:32 Note Text: Episode Visit Count: 2 Therapist That Will Accept/Oversee The Plan Of Care: Bennie Magallon PT Start of Care Date: 01/07/25 Onset Date: 09/08/24 Plan of Care Certification Date: 01/07/25 Next Certification Due Date: 02/04/25 Patient Identified by Name and Date of : Yes REHABILITATION AND SPORTS THERAPY PHYSICAL THERAPY DISCONTINUANCE OF CARE PLAN OF CARE UPDATE: Assessment: Jamaal Benavides is discontinued from Physical Therapy services due to goal achievement., Patient/Client declining further intervention., and Patient/Clinician mutual decision to discontinue current plan of care.. Patient was seen for 2 visits from Start of Care Date: 01/07/25 to 01/21/2025 and treatment included: Therapeutic exercise and Patient/Family/Caregiver Education. Updated: 01/21/25 Goals for Episode of Care: established 01/07/25 Independent in home exercises. - MET Patient will decrease pain to 0/10 at rest and with functional activities to allow patient to improve ambulation, transfers, and standing tolerance for ADLs. - MET Restore pain-free lumbar ROM to WFL to allow for improved mobility. - Partially MET Stand / Walk without limitations, without pain/symptoms. - MET Patient will increase strength of core and postural muscles to WFL to allow for improve ability to complete ADLs and improve ability to negotiate stairs. - MET Patient will increase flexibility of R piriformis to equal unaffected extremity/side to improve ability to maintain proper posture, improve mechanics, and decrease pain. - MET Patient Goals: alleviate pain - MET Classification Pain Mechanism Classification: Neuropathic Low Back Pain Classification: Symptom Modulation SUBJECTIVE: Pt reports that since evaluation he has been mostly pain-free. He reports compliance with HEP 3-4x week. He acknowledges that this is less than he should be. He denies any other changes and attributes the improvements to the HEP stretch. He denies any functional limitations with ambulation, transfers, standing or stairs. Pain: Pain Pain Level: 0 Pain Location: Buttocks - Right, Hip - Right, Knee - Right, Calf - Right Description: (no pain to start today) Post Treatment Pain Post Treatment Pain Level: No Change PROMIS Scales 01/07/2025 Higher is Better Phys Func - T Score 57 (within normal limits) Phys Func - Percentile 76 Self-Eff Symptom - T Score 55 (Average) Self-Eff Symptom - Percentile 69 Proxy-reported T-scores: mean of general population = 50. 5 points is clinically meaningfully difference Percentiles provide an indication of how the patient's score ranks in relation to the general population. Higher percentile rankings indicate better function/quality of life. 50th percentile is the average of the general population and indicates half of respondents had a worse score. OBJECTIVE MEASURES WITH LEVEL OF FUNCTION: Lumbar Spine AROM Lumbar Flexion: Moderate limitation Lumbar Extension: Moderate limitation Lumbar R Side-Bend: Normal Lumbar L Side-Bend: Normal Lumbar R Rotation: Normal Lumbar L Rotation: Minimal limitation LE Flexibility Flexibility: Piriformis Flexibility R Piriformis Flexibility: 39 Gait Gait Observation: WNL TREATMENT: Therapeutic Exercise: 1: [employer] StepOne seat #12 x5 minutes (Pt provided an update on his condition, goals assessed and plan of care reviewed.) 2: *supine R piriformis stretch 3x30 seconds 3: re-assessment results explained to pt and HEP reviewed. Pt was encouraged to continue with HEP to tolerance and to call with any future questions or concerns. Therapist's contact information provided. Skilled Intervention: Patient was educated in proper exercise technique and purpose for exercises. Skilled judgment was used in selection of appropriate interventions. Correct performance of therapeutic exercises was facilitated with verbal, visual, and tactile cuing. Patient education as noted. Billing Therapeutic Exercise Treatment Minutes: 16 Skilled Treatment Time Minutes (timed and untimed codes): 16 Total Session Time (minutes): 16 Session Start Time : 1049 Session Stop Time : 1105 Bennie Magallon PT [facility] History of Present illness Narrative 01-21-2025 Bennie Magallon PT - 01/21/2025 11:30 AM EDT Note Date & Type Note Facility 01-21-2025 History of Presen t illness Narrative Images from the original note were not included. Episode Visit Count: 2 Therapist That Will Accept/Oversee The Plan Of Care: Bennie Magallon PT Start of Care Date: 01/07/25 Onset Date: 09/08/24 Plan of Care Certification Date: 01/07/25 Next Certification Due Date: 02/04/25 Patient Identified by Name and Date of : Yes REHABILITATION AND SPORTS THERAPY PHYSICAL THERAPY DISCONTINUANCE OF CARE PLAN OF CARE UPDATE: Assessment: Jamaal Benavides is discontinued from Physical Therapy services due to goal achievement., Patient/Client declining further intervention., and Patient/Clinician mutual decision to discontinue current plan of care.. Patient was seen for 2 visits from Start of Care Date: 01/07/25 to 01/21/2025 and treatment included: Therapeutic exercise and Patient/Family/Caregiver Education. Updated: 01/21/25 Goals for Episode of Care: established 01/07/25 Independent in home exercises. - MET Patient will decrease pain to 0/10 at rest and with functional activities to allow patient to improve ambulation, transfers, and standing tolerance for ADLs. - MET Restore pain-free lumbar ROM to WFL to allow for improved mobility. - Partially MET Stand / Walk without limitations, without pain/symptoms. - MET Patient will increase strength of core and postural muscles to WFL to allow for improve ability to complete ADLs and improve ability to negotiate stairs. - MET Patient will increase flexibility of R piriformis to equal unaffected extremity/side to improve ability to maintain proper posture, improve mechanics, and decrease pain. - MET Patient Goals: alleviate pain - MET Classification Pain Mechanism Classification: Neuropathic Low Back Pain Classification: Symptom Modulation SUBJECTIVE: Pt reports that since evaluation he has been mostly pain-free. He reports compliance with HEP 3-4x week. He acknowledges that this is less than he should be. He denies any other changes and attributes the improvements to the HEP stretch. He denies any functional limitations with ambulation, transfers, standing or stairs. Pain: Pain Pain Level: 0 Pain Location: Buttocks - Right, Hip - Right, Knee - Right, Calf - Right Description: (no pain to start today) Post Treatment Pain Post Treatment Pain Level: No Change PROMIS Scales 01/07/2025 Higher is Better Phys Func - T Score 57 (within normal limits) Phys Func - Percentile 76 Self-Eff Symptom - T Score 55 (Average) Self-Eff Symptom - Percentile 69 Proxy-reported T-scores: mean of general population = 50. 5 points is clinically meaningfully difference Percentiles provide an indication of how the patient's score ranks in relation to the general population. Higher percentile rankings indicate better function/quality of life. 50th percentile is the average of the general population and indicates half of respondents had a worse score. OBJECTIVE MEASURES WITH LEVEL OF FUNCTION: Lumbar Spine AROM Lumbar Flexion: Moderate limitation Lumbar Extension: Moderate limitation Lumbar R Side-Bend: Normal Lumbar L Side-Bend: Normal Lumbar R Rotation: Normal Lumbar L Rotation: Minimal limitation LE Flexibility Flexibility: Piriformis Flexibility R Piriformis Flexibility: 39 Gait Gait Observation: WNL TREATMENT: Therapeutic Exercise: 1: [employer] StepOne seat #12 x5 minutes (Pt provided an update on his condition, goals assessed and plan of care reviewed.) 2: *supine R piriformis stretch 3x30 seconds 3: re-assessment results explained to pt and HEP reviewed. Pt was encouraged to continue with HEP to tolerance and to call with any future questions or concerns. Therapist's contact information provided. Skilled Intervention: Patient was educated in proper exercise technique and purpose for exercises. Skilled judgment was used in selection of appropriate interventions. Correct performance of therapeutic exercises was facilitated with verbal, visual, and tactile cuing. Patient education as noted. Billing Therapeutic Exercise Treatment Minutes: 16 Skilled Treatment Time Minutes (timed and untimed codes): 16 Total Session Time (minutes): 16 Session Start Time : 1049 Session Stop Time : 1105 Bennie Magallon PT documented in this encounter [facility] Progress note 01-07-2025 Note Date & Type Note Facility 01-07-2025 Note HNO ID: [id number] Author: BENNIE MAGALLON PT Service: ? Author Type: Physical Therapist Type: Progress Notes Filed: 01/07/2025 23:34 Note Text: Episode Visit Count: 1 Therapist That Will Accept/Oversee The Plan Of Care: Bennie Magallon PT Start of Care Date: 01/07/25 Onset Date: 09/08/24 Plan of Care Certification Date: 01/07/25 Next Certification Due Date: 02/04/25 Patient Identified by Name and Date of : Yes REHABILITATION AND SPORTS THERAPY PHYSICAL THERAPY EVALUATION PLAN OF CARE: Assessment: Jamaal Benavides presents with diagnosis of R hip, knee and ankle pain that interferes with stair negotiation, rising from a chair, standing, kneeling. The patient presents with impairments in ADL's, balance, flexibility, gait, independence in exercise, overall function, range of motion, strength, symptom management, and tissue tenderness. PROMIS? (Patient-Reported Outcomes Measurement Information System) scores were reviewed and identified as within normal limits. Prognosis for therapy is Excellent due to: current objective clinical presentation, good overall health status, within-session changes, good support system/ coping skills. The patient will benefit from skilled therapy services to meet the goals established for this plan of care as noted below. Classification Pain Mechanism Classification: Neuropathic Low Back Pain Classification: Symptom Modulation Goals for Episode of Care: established 01/07/25 Independent in home exercises. Patient will decrease pain to 0/10 at rest and with functional activities to allow patient to improve ambulation, transfers, and standing tolerance for ADLs. Restore pain-free lumbar ROM to WFL to allow for improved mobility. Stand / Walk without limitations, without pain/symptoms. Patient will increase strength of core and postural muscles to WFL to allow for improve ability to complete ADLs and improve ability to negotiate stairs. Patient will increase flexibility of R piriformis to equal unaffected extremity/side to improve ability to maintain proper posture, improve mechanics, and decrease pain. Patient Goals: alleviate pain Time Frame for Goals and Treatment : 02/04/25 Planned Interventions, Frequency, and Duration: Current Frequency: 1x/week Duration: 4 weeks Total Number of Visits Planned: 4 Planned Treatment Interventions: Therapeutic exercise (92192), Neuromuscular re-education (94821), Manual therapy (01632), Therapeutic activities (97497), Self-fdc management (91198), Gait Training (45375), Patient/Family/Caregiver Education, Body Mechanics Training, General Conditioning PLAN FOR NEXT VISIT: Review, correct and progress HEP to tolerance. Continue with postural stretching and strengthening. As needed, use his flexion directional preference and manual therapy prn. Consider utilizing soft tissue mobilization to R piriformis. Patient demonstrates good understanding of plan of care and treatment. The above goals and plan of care were discussed and agreed upon by patient/family. SUBJECTIVE: Pt reports intermittent pain in R hip, R knee and down into R lower leg. He reports that these symptoms have been present for 3-4 months and vary in intensity. He reports that symptoms have been minimal the past couple of days without explanation. He reports that symptoms are more severe when he is sedentary. He reports that when he is sitting on his recliner, if he externally rotates his hips and puts the soles of his feet against each other, his R hip and LE pain diminishes. Patient Goals: alleviate pain Functional Limitations: stair negotiation, rising from a chair, standing, kneeling Prior Level of Function: Independent without limitations Relevant History Employment: Retired Hobbies / Interests: wood working/furniture making Home Environment Patient Lives With: Spouse Home Type: [place] Entry To Home: Stairs, With Rail Number Of Stairs Into Home: 3 Intake Information: Prescription present Previous Treatment: Acupuncture (temporary relief) Falls Interview: No positive findings with falls interview Red Flags Vertebral Fracture Red Flags: Age >70 Vertebral Fracture Clinical Reasoning: Proceed with caution due to the above (1-2) risk factors Abdominal Aortic Aneurysm Clinical Reasoning: No identified risk factors. Cancer Clinical Reasoning: No identified risk factors. Infection Clinical Reasoning: No identified risk factors. Cauda Equina Syndrome Clinical Reasoning: No identified risk factors. Red Flags - Cervical Cancer Clinical Reasoning: No identified risk factors. Infection Clinical Reasoning: No identified risk factors. Spine History Symptoms Location at Onset: Buttock, Thigh Symptoms Since Onset: Unchanging Pain is Worse Sometimes: Sitting, Rest, As the day progresses Pain is Better Sometimes: On the Move Previous Episodes: No Pain: Pain Pain Level: (2/10 currently, 6-7/10 (more content not included)... [facility] History of Present illness Narrative 01-07-2025 Bennie Magallon, PT - 01/07/2025 11:15 PM EDTGBennie malone PT - 01/07/2025 10:46 AM EDT Note Date & Type Note Facility 01-07-2025 History of Presen t illness Narrative Images from the original note were not included. Episode Visit Count: 1 Therapist That Will Accept/Oversee The Plan Of Care: Bennie Magallon PT Start of Care Date: 01/07/25 Onset Date: 09/08/24 Plan of Care Certification Date: 01/07/25 Next Certification Due Date: 02/04/25 Patient Identified by Name and Date of : Yes REHABILITATION AND SPORTS THERAPY PHYSICAL THERAPY EVALUATION PLAN OF CARE: Assessment: Jamaal Benavides presents with diagnosis of R hip, knee and ankle pain that interferes with stair negotiation, rising from a chair, standing, kneeling. The patient presents with impairments in ADL's, balance, flexibility, gait, independence in exercise, overall function, range of motion, strength, symptom management, and tissue tenderness. PROMIS (Patient-Reported Outcomes Measurement Information System) scores were reviewed and identified as within normal limits. Prognosis for therapy is Excellent due to: current objective clinical presentation, good overall health status, within-session changes, good support system/ coping skills. The patient will benefit from skilled therapy services to meet the goals established for this plan of care as noted below. Classification Pain Mechanism Classification: Neuropathic Low Back Pain Classification: Symptom Modulation Goals for Episode of Care: established 01/07/25 Independent in home exercises. Patient will decrease pain to 0/10 at rest and with functional activities to allow patient to improve ambulation, transfers, and standing tolerance for ADLs. Restore pain-free lumbar ROM to WFL to allow for improved mobility. Stand / Walk without limitations, without pain/symptoms. Patient will increase strength of core and postural muscles to WFL to allow for improve ability to complete ADLs and improve ability to negotiate stairs. Patient will increase flexibility of R piriformis to equal unaffected extremity/side to improve ability to maintain proper posture, improve mechanics, and decrease pain. Patient Goals: alleviate pain Time Frame for Goals and Treatment : 02/04/25 Planned Interventions, Frequency, and Duration: Current Frequency: 1x/week Duration: 4 weeks Total Number of Visits Planned: 4 Planned Treatment Interventions: Therapeutic exercise (74782), Neuromuscular re-education (79568), Manual therapy (48621), Therapeutic activities (05503), Self-fdc management (38843), Gait Training (24846), Patient/Family/Caregiver Education, Body Mechanics Training, General Conditioning PLAN FOR NEXT VISIT: Review, correct and progress HEP to tolerance. Continue with postural stretching and strengthening. As needed, use his flexion directional preference and manual therapy prn. Consider utilizing soft tissue mobilization to R piriformis. Patient demonstrates good understanding of plan of care and treatment. The above goals and plan of care were discussed and agreed upon by patient/family. SUBJECTIVE: Pt reports intermittent pain in R hip, R knee and down into R lower leg. He reports that these symptoms have been present for 3-4 months and vary in intensity. He reports that symptoms have been minimal the past couple of days without explanation. He reports that symptoms are more severe when he is sedentary. He reports that when he is sitting on his recliner, if he externally rotates his hips and puts the soles of his feet against each other, his R hip and LE pain diminishes. Patient Goals: alleviate pain Functional Limitations: stair negotiation, rising from a chair, standing, kneeling Prior Level of Function: Independent without limitations Relevant History Employment: Retired Hobbies / Interests: wood working/furniture making Home Environment Patient Lives With: Spouse Home Type: [place] Entry To Home: Stairs, With Rail Number Of Stairs Into Home: 3 Intake Information: Prescription present Previous Treatment: Acupuncture (temporary relief) Falls Interview: No positive findings with falls interview Red Flags Vertebral Fracture Red Flags: Age >70 Vertebral Fracture Clinical Reasoning: Proceed with caution due to the above (1-2) risk factors Abdominal Aortic Aneurysm Clinical Reasoning: No identified risk factors. Cancer Clinical Reasoning: No identified risk factors. Infection Clinical Reasoning: No identified risk factors. Cauda Equina Syndrome Clinical Reasoning: No identified risk factors. Red Flags - Cervical Cancer Clinical Reasoning: No identified risk factors. Infection Clinical Reasoning: No identified risk factors. Spine History Symptoms Location at Onset: Buttock, Thigh Symptoms Since Onset: Unchanging Pain is Worse Sometimes: Sitting, Rest, As the day progresses Pain is Better Sometimes: On the Move Previous Episodes: No Pain: Pain Pain Level: (2/10 currently, 6-7/10 at worst) Pain Location: Buttocks - Right, Hip - Right, Knee - Right, Calf - Right (knee is most severe) Description: Aching Frequency: Intermittent Post Treatment Pain Post Treatment Pain Level: No Change PROMIS Scales 01/07/2025 Higher is Better Phys Func - T Score 57 (within normal limits) Phys Func - Percentile 76 Self-Eff Symptom - T Score 55 (Average) Self-Eff Symptom - Percentile 69 Proxy-reported T-scores: mean of general population = 50. 5 points is clinically meaningfully difference Percentiles provide an indication of how the patient's score ranks in relation to the general population. Higher percentile rankings indicate better function/quality of life. 50th percentile is the average of the general population and indicates half of respondents had a worse score. OBJECTIVE MEASURES WITH LEVEL OF FUNCTION: Spine Observations R Lumbar Spine Palpation Tenderness: Greater trochanter L Lumbar Spine Palpation Tenderness: No tenderness noted Sensation - Lumbar Sensation: Grossly Intact Lumbar Spine AROM Lumbar Flexion: Moderate limitation Lumbar Extension: Major limitation Lumbar R Side-Bend: Normal Lumbar L Side-Bend: Normal, Increased pain Lumbar R Rotation: Minimal limitation Lumbar L Rotation: Minimal limitation LE Flexibility Flexibility: Piriformis Flexibility R Piriformis Flexibility: 29 (painful) L Piriformis Flexibility: 37 (no pain) LE Strength Trunk Strength: Pt's reported functional difficulties indicate that he will benefit from increased core and postural strength. R LE Strength: No asymmetrical myotomal weakness detected in B LEs at this time L LE Strength: No asymmetrical myotomal weakness detected in B LEs at this time Special Tests - Hip and Spine Hip and Spine Special Tests: SLR Test SLR Test: Right Positive, Left Negative Gait Gait Observation: WNL Stairs: Pt reports functional difficulty negotiating stairs Vitals BP: 115/61 Pulse: 77 Education: Education Learning Preferences: Demonstration, Explanation, Performance, Printed Materials Barriers: None Learning/educational needs: Home exercise program, Plan of Care, Posture, Body Mechanics Education Provided: Yes, see treatment interventions for education provided Education Provided To: Patient Education Mode/Type: Demonstration, Explanation/Discussion, Literature/Printed Materials, Performance Response to Education/Teach Back: States/Identifies, Return Demonstration, Requires Review/Additional Education TREATMENT: PT Treatment Interventions: Therapeutic Exercise Evaluation Therapeutic Exercise: 1: Pt was educated on the anatomy of his symptomatic areas, likely etiology of symptoms and rationale for proposed PT plan of care. He was repeatedly advised to use pain as his guide at all times and to stop any exercise that causes increased pain. Proper intensity was emphasized with stretches. 2: *supine R piriformis stretch 3x30 seconds Skilled Intervention: Patient was educated in proper exercise technique and purpose for exercises. Reviewed and educated patient on additions/changes for home exercise program as above (*). Skilled judgment was used in selection of appropriate interventions. Provided written instruction for home exercise program to facilitate proper performance and compliance. Correct performance of therapeutic exercises was facilitated with verbal, visual, and tactile cuing. Patient education as noted. Billing * Evaluation Low Complexity: 1 Unit Therapeutic Exercise Treatment Minutes: 15 Skilled Treatment Time Minutes (timed and untimed codes): 35 Total Session Time (minutes): 35 Session Start Time : 1015 Session Stop Time : 1050 Bennie Magallon PT Program_ID:[id number] Access Code: [email or web address] URL: [email or web address] Date: 01-07-2025 Prepared By: Bennie Magallon Program Notes Exercises - Supine Piriformis Stretch with Foot on Ground - 3 x daily - 7 x weekly - sets - 3 reps documented in this encounter [facility] Radiology Diagnostic study note 11-20-2024 Note Date & Type Note Facility 11-20-2024 Rad[address] study note [facility] Imaging Services [address] [place], [place] [id number] HIP, UNI W/ Pelvis 2-3 Views MR#: [id number] Acct: [id number] Name: JAMAAL BENAVIDES Rep #: : [id number] From: John Wilde DO PCP: Dr. Rian Quiles MD Status: [facility] CLI Study:HIP, UNI W/ Pelvis 2-3 Views Date of Ex am: 11/20/24 Exam# [id number] Ordering Dr: Rian Quiles MD PROCEDURE: HIP, UNI W/ PELVIS 2-3 VIEWS REASON FOR EXAM: Pain TECHNIQUE: Two views of the right hip with pelvis COMPARISON: None. FINDINGS: No fracture. No suspicious bone lesion. Normal alignment. Soft tissues are unremarkable. RAD/HIP, UNI W/ Pelvis 2-3 Views IMPRESSION: No acute fracture or dislocation. Reading Location: [facility] CC: Dr. Rian Quiles MD ~ Train Planner: Signed [facility] Radiology Diagnostic study note 11-20-2024 Note Date & Type Note Facility 11-20-2024 Radiology Diagnostic study note [facility] Imaging Services [address] [place], [place] [id number] Knee 3 Views MR#: [id number] Acct: [id number] Name: JAMAAL BENAVIDES Rep #: : [id number] From: Ursula Herrmann MD PCP: Dr. Rian Quiles MD Status: [facility] CLI Study:Knee 3 Views Date of Exam: 5 Exam# [id number] Ordering Dr: Rian Quiles MD PROCEDURE: KNEE 3 VIEWS REASON FOR EXAM: Pain TECHNIQUE: 3 view(s) of the right knee COMPARISON: None. FINDINGS: No fracture. No suspicious bone lesion. Moderate tricompartmental degenerative changes No effusion. Soft tissues are unremarkable. RAD/Knee 3 Views IMPRESSION: Moderate degenerative changes with no acute osseous abnormality Reading Location: [facility] CC: Dr. Rian Quiles MD ~ Train Planner: Signed [facility] Evaluation note Note Date & Type Note Facility Evaluation note No assessment information availa ble [facility] Work Phone: Evaluation note Note Date & Type Note Facility Evaluation note Diagnosis Radiculopathy, lumbar region- Primary Thoracic or lumbosacral neuritis or radiculitis, unspecified documented in this encounter [facility] Evaluation note Note Date & Type Note Facility Evaluation note Diagnosis Radiculopathy, lumbar region- Primary Thoracic or lumbosacral neuritis or radiculitis, unspecified documented in this encounter [facility] Reason for referral (narrative) Note Date & Type Note Facility Reason for referral (narrative) No reason for referral information available [facility] Work Phone: Chief Complaint and Reason for Visit 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 Chief Complaint Admit Date pain- RIGHT HIP/ RIGHT KNEE November 20 025 3:49pm Chief Complaint Admit Date pain- RIGHT HIP/ RIGHT KNEE November 20 025 3:49pm [facility] December 10, 2024 7:0 2am Chief Complaint Admit Date [facility] December 10, 2024 7:0 2am PSA March 20, 2025 1:32p m Advance Directives No Advanced Directives Records Found Advance Directive Response Recorded Date/ Time Living Will No December 21, 2015 10:07am Power of Tracer 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 No December 20 6 10:07am Advance Directive Response Recorded Date/ Time Living Will No December 21, 2015 9:07am Power of Tracer 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 No December 20 6 9:07am Summary Purpose Family History No Family History Records FoundNo Family History Records Found Additional Source Comments Goals (unrecognized section and content) Goals may be documented in a n alternate sectionGoals may be documented in an alternate sectionGoals may be documented in an alternate sectionGoals may be documented in an alternate sectionGoals may be documented in an alternate sectionGoals may be documented in an alternate sectionGoals may be documented in an alternate sectionGoals may be documented in an alternate section Care Teams (unrecognized sec tion and content) Team Status: Active Member Role Status Dates Dr. Rian Quispe MD Family Provider Active Dr. Rian Quiles MD Primary Care Provider Active Team Status: Active Member Role Status Dates Dr. Rian Quiles MD Primary Care Provider Active Dr. Marco Bearden MD Attending Provider, Referr ing Provider Active Team Status: Inactive Member Role Status Dates Dr. Rian Quiles MD Primary Care Provider Active Jeff Dodge MD Attending Provider Active Team Status: Inactive Member Role Status Dates Dr. Rian Quiles MD Primary Care Provider Active Dr. Marco Bearden MD Attending Provider, Referr ing Provider Active Team Status: Active Member Role Status Dates Dr. Rian Quiles MD Primary Care Pr ovider, Attending Provider, Referring Provider Active Team Status: Inactive Member Role Status Dates Dr. Rian Quiles MD Primary Care Pr ovider, Attending Provider, Referring Provider Active Team Status: Inactive Member Role Status Dates Dr. Rian Quiles MD Primary Care Provider Active Sweetie Daugherty Attending Provider, Referring Provide r Active Team Status: Inactive Member Role Status Dates Dr. Rian Quiles MD Primary Care Provider Active Start: November 20, 2024 End: November 20, 2024 Dr. Rian Quiles MD Attending Provider Active Start: November 20, 2024 End: November 20, 2024 Dr. Rian Quiles MD Referring Provider Active Start: November 20, 2024 End: November 20, 2024 Team Status: Inactive Member Role Status Dates Dr. Rian Quiles MD Primary Care Provider Active Start: December 10, 2024 End: December 10, 2024 Dr. Virgil Blackwood MD Attending Provider Active Start: December 10, 2024 End: December 10, 2024 Dr. Virgil Blackwood MD Referring Provider Active Start: December 10, 2024 End: December 10, 2024 Team Status: Active Member Role/Relationship Status Dates Dr. Rian Quiles MD Primary Care Provider Active Team Status: Inactive Member Role/Relationship Status Dates Dr. Rian Quiles MD Primary Care Provider Active Start: December 10, 2024 End: December 10, 2024 Dr. Virgil Blackwood MD Attending Provider Active Start: December 10, 2024 End: December 10, 2024 Dr. Virgil Blakcwood MD Referring Provider Active Start: December 10, 2024 End: December 10, 2024 Team Status: Inactive Member Role/Relationship Status Dates Dr. Rian Quiles MD Primary Care Provider Active Start: March 20, 2025 End: March 20, 2025 Dr. Marco Bearden MD Attending Provider Active Start: March 20, 2025 End: March 20, 2025 Dr. Marco Bearden MD Referring Provider Active Start: March 20, 2025 End: March 20, 2025 Source Comments (unrecognize d section and content) In the event this informatio n is protected by the Federal Confidentiality of Alcohol and Drug Abuse Patient Records regulations: The Federal rules restrict any use of the information to criminally investigate or prosecute any alcohol or drug abuse patient.[facility] the event this information is protected by the Federal Confidentiality of Alcohol and Drug Abuse Patient Records regulations: The Federal rules restrict any use of the information to criminally investigate or prosecute any alcohol or drug abuse patient.[facility] Reason for Visit (unrecogniz ed section and content) Reason Comments Physical Therapy PT Discharge Specialty Diagnoses / Procedures Referred By Contac t Referred To Contact Physical Therapy / PHYSICAL THERAPY Diagnoses right side leg pain Procedures PHYSICAL THERAPY EVALUATION HIGH COMPLEX 45 MINS NEW RS PT ORTH K Rian Quiles MD [address] [place] [address] Phone: tel: fax: Bennie Magallon, PT [address] [place] [address] Phone: tel: fax: Referral ID Status Reason Start Date Expiration Date V isits Requested Visits Authorized [id number] Authorized 09/18/2024 09/17/2025 20 20 Reason Comments PT Eval Physical Therapy (unrecognized sect ion and content) No Status Records FoundNo Status Records Found INFORMATION SOURCE (unrecogn ized section and content) DATE CREATED AUTHOR 01/22/2025 [facility] DATE CREATED AUTHOR AUTHOR'S TREE ATTHIAGO 03/31/2025 [facility] FOR RECORDS PERTAINING TO PATIENTS WHO ARE OR HAVE BEEN ENROLLED IN A CHEMICAL DEPENDENCY/SUBSTANCEABUSE PROGRAM, SOME INFORMATION MAY BE OMITTED. This clinical summary was aggregated from multiple sources. Caution should be exercised in using it in the provision of clinical care. This summary normalizes information from multiple sources, and as a consequence, information in this document may materially change the coding, format and clinical context of patient data. In addition, data may be omitted in some cases. CLINICAL DECISIONS SHOULD BE BASED ON THE PRIMARY CLINICAL RECORDS. [employer] provides no warranty or guarantee of the accuracy or completeness of information in this document.
[2025-05-28 10:30] LABS: Ferritin 257 ng/mL (37-417); Iron 88 ug/dL (65-175); Iron Binding Capacity,Total 305 ug/dL (250-450); Iron Binding Capacity,Unsat 217 ug/dL (228-428); Vitamin B12 904 pg/mL (180-914)
== END | disposition home or self-care (01) ==
LOC: MFPLAB 11:38
PROVIDERS: PCP Family Medicine; Referring Provider Family Medicine; Visit Provider Family Medicine
DX: D64.9 Anemia, unspecified (principal); I25.10 Atherosclerotic heart disease of native coronary artery without angina pectoris; E55.9 Vitamin D deficiency, unspecified
CPT/HCPCS: 36415; 80053; 80061; 82306; 82607; 82728; 83540; 83550; 85025